=== PATIENT | female | born 1950 | race Caucasian/White ===

== ENCOUNTER 2017-11-17 09:05 | Outpatient (CLI) | payer MEDICARE, OTHER, SELFPAY ==
--- NOTE | 2017-11-17 09:17 | DI.REPORT_ITS ---
SYMPTOM/DIAGNOSIS: RT THUMB PAIN RIGHT WRIST: Three views. At the first carpal metacarpal joint, there is marked joint space narrowing and subchondral sclerosis present. Prominent hypertrophic changes are seen at the joint space. The joint spaces of the wrist are otherwise well maintained. The bones are intact and normally mineralized. The soft tissues are unremarkable. 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
== END 2017-11-17 09:06 ==
PROVIDERS: Visit Provider Physician Assistant
DX: M79.644 Pain in right finger(s) (principal); M18.11 Unilateral primary osteoarthritis of first carpometacarpal joint, right hand
CPT/HCPCS: 73110; 99203

== ENCOUNTER → 2017-12-29 09:11 | Outpatient (BNVA) | payer MEDICARE, OTHER, SELFPAY | PROVIDERS: Visit Provider Student in an Organized Health Care Education/Training Program | DX: M18.11 Unilateral primary osteoarthritis of first carpometacarpal joint, right hand (principal) | CPT/HCPCS: 20600; 99213; J1030 ==

== ENCOUNTER 2018-02-05 07:57 | Outpatient (CLI) | payer MEDICARE, OTHER, SELFPAY ==
[2018-02-05 09:26] LABS: Cholesterol 230 mg/dL (50-200); Glucose 98 mg/dL (70-100); HDL Cholesterol 70 mg/dL (40-60); LDL CHOLESTEROL 135 mg/dL (<100); TSH 0.17 uIU/mL (0.358-3.74); Triglyceride 123 mg/dL (30-150)
[2018-02-05 09:38] LABS: Vitamin D 25 Total 33.5 ng/ml (30-100)
== END 2018-02-05 08:17 ==
PROVIDERS: PCP General Practice; Visit Provider General Practice
DX: E03.9 Hypothyroidism, unspecified (principal); E78.89 Other lipoprotein metabolism disorders; M81.0 Age-related osteoporosis without current pathological fracture
CPT/HCPCS: 36415; 80061; 82306; 82947; 83721; 84443

== ENCOUNTER 2019-03-02 10:12 | Outpatient (REF) | payer MEDICARE, SELFPAY ==
[2019-03-02 12:44] LABS: ALT 31 U/L (14-59); AST 19 U/L (15-37); Albumin 4.6 g/dL (3.4-5.0); Alkaline Phosphatase 74 U/L (46-116); Anion Gap 14.4 mmol/L (3-11); BUN 18 mg/dL (7-18); Bilirubin, Total 0.3 mg/dL (0.2-1.0); CO2 23.6 mmol/L (21.0-32.0); CREATININE 0.89 mg/dL (0.55-1.02); Calcium 9.5 mg/dL (8.5-10.1); Calculated LDL 175 mg/dL; Chloride 103 mmol/L (98-107); Cholesterol 275 mg/dL (<200); Glucose 109 mg/dL (74-106); HDL Cholesterol 73 mg/dL (40-60); Magnesium 2.1 mg/dL (1.8-2.4); Potassium 4.4 mmol/L (3.5-5.1); Sodium 141 mmol/L (136-145); TSH (W/Ref FT4) 0.33 uIU/mL (0.36-3.74); Total Protein 8.5 g/dL (6.4-8.2); Triglyceride 138 mg/dL (30-150)
[2019-03-02 13:16] LABS: FREE T4 1.37 ng/dL (0.76-1.46); PHOSPHORUS 4.1 mg/dL (2.6-4.7)
== END 2019-03-02 10:32 ==
LOC: NCHCN 10:12
PROVIDERS: PCP General Practice; Visit Provider Nurse Practitioner Family
DX: I10 Essential (primary) hypertension (principal); E78.5 Hyperlipidemia, unspecified; E05.90 Thyrotoxicosis, unspecified without thyrotoxic crisis or storm; N39.3 Stress incontinence (female) (male); G47.00 Insomnia, unspecified; J30.2 Other seasonal allergic rhinitis; Z85.3 Personal history of malignant neoplasm of breast; M81.0 Age-related osteoporosis without current pathological fracture
CPT/HCPCS: 80053; 80061; 83735; 84100; 84439; 84443

== ENCOUNTER 2019-03-17 10:06 | Outpatient (REF) | payer MEDICARE, SELFPAY ==
[2019-03-17 12:41] LABS: Anion Gap 10.7 mmol/L (3-11); BUN 16 mg/dL (7-18); CO2 27.3 mmol/L (21.0-32.0); CREATININE 0.77 mg/dL (0.55-1.02); Calcium 8.8 mg/dL (8.5-10.1); Chloride 93 mmol/L (98-107); Glucose 99 mg/dL (74-106); Potassium 3.5 mmol/L (3.5-5.1); Sodium 131 mmol/L (136-145)
== END 2019-03-17 10:26 ==
LOC: NCHCN 10:06
PROVIDERS: PCP General Practice; Visit Provider Nurse Practitioner Family
DX: I10 Essential (primary) hypertension (principal); E78.5 Hyperlipidemia, unspecified
CPT/HCPCS: 80048

== ENCOUNTER 2019-04-02 10:34 | Outpatient (REF) | payer MEDICARE, SELFPAY ==
[2019-04-02 20:56] LABS: Anion Gap 11.8 mmol/L (3-11); BUN 17 mg/dL (7-18); CO2 24.2 mmol/L (21.0-32.0); CREATININE 0.92 mg/dL (0.55-1.02); Chloride 104 mmol/L (98-107); Glucose 103 mg/dL (74-106); Potassium 4.6 mmol/L (3.5-5.1); Sodium 140 mmol/L (136-145)
== END 2019-04-02 10:54 ==
LOC: NCHCN 10:34
PROVIDERS: PCP General Practice; Visit Provider Nurse Practitioner Family
DX: I10 Essential (primary) hypertension (principal)
CPT/HCPCS: 80048

== ENCOUNTER 2019-04-15 10:08 | Outpatient (REF) | payer MEDICARE, SELFPAY | END 2019-04-15 10:28 | LOC: NCHCN 10:08 | PROVIDERS: PCP General Practice; Visit Provider Nurse Practitioner Family | DX: I10 Essential (primary) hypertension (principal); E78.5 Hyperlipidemia, unspecified; E05.90 Thyrotoxicosis, unspecified without thyrotoxic crisis or storm | CPT/HCPCS: 84443 ==

== ENCOUNTER 2020-03-14 11:49 | Outpatient (REF) | payer MEDICARE, SELFPAY ==
[2020-03-14 22:31] LABS: Calculated LDL 159 mg/dL (<100); Cholesterol 260 mg/dL (<200); HDL Cholesterol 72 mg/dL (40-60); TSH 2.47 uIU/mL (0.36-3.74); Triglyceride 148 mg/dL (<150)
[2020-03-16 15:41] LABS: ALT 31 U/L (14-59); AST 24 U/L (15-37); Albumin 4.3 g/dL (3.4-5.0); Alkaline Phosphatase 63 U/L (46-116); Anion Gap 10.1 mmol/L (3-11); BUN 17 mg/dL (7-18); Bilirubin, Total 0.3 mg/dL (0.2-1.0); CO2 22.9 mmol/L (21.0-32.0); CREATININE 1.13 mg/dL (0.55-1.02); Calcium 9.5 mg/dL (8.5-10.1); Chloride 105 mmol/L (98-107); Glucose 113 mg/dL (74-106); Potassium 4.8 mmol/L (3.5-5.1); Sodium 138 mmol/L (136-145); Total Protein 7.9 g/dL (6.4-8.2)
== END 2020-03-14 12:09 ==
LOC: NCHCN 11:49
PROVIDERS: PCP General Practice; Visit Provider Nurse Practitioner Family
DX: I10 Essential (primary) hypertension (principal); E05.90 Thyrotoxicosis, unspecified without thyrotoxic crisis or storm; E78.5 Hyperlipidemia, unspecified
CPT/HCPCS: 80053; 80061; 84443

== ENCOUNTER 2020-09-22 16:22 | Outpatient (REF) | payer MEDICARE, SELFPAY ==
[2020-09-22 20:22] LABS: ALT 34 U/L (14-59); AST 22 U/L (15-37); Albumin 4.4 g/dL (3.4-5.0); Alkaline Phosphatase 70 U/L (46-116); BUN 24 mg/dL (7-18); Bilirubin, Total 0.4 mg/dL (0.2-1.0); CREATININE 1.6 mg/dL (0.55-1.02); Calcium 9.4 mg/dL (8.5-10.1); Calculated LDL 125 mg/dL (<100); Chloride 105 mmol/L (98-107); Cholesterol 275 mg/dL (<200); Estimated GFR 31.87 (mL/min/1.73m2); Glucose 106 mg/dL (74-106); HDL Cholesterol 73 mg/dL (40-60); Potassium 4.4 mmol/L (3.5-5.1); Sodium 140 mmol/L (136-145); Total Protein 8.3 g/dL (6.4-8.2); Triglyceride 388 mg/dL (<150)
[2020-09-25 09:54] LABS: Hepatitis C Ab w Rflx HCV PCR Negative (Negative)
== END 2020-09-22 16:23 | disposition home or self-care (01) ==
LOC: NCHCN 16:22
PROVIDERS: PCP General Practice; Visit Provider Nurse Practitioner Family
DX: I10 Essential (primary) hypertension (principal); E78.5 Hyperlipidemia, unspecified; M81.0 Age-related osteoporosis without current pathological fracture; Z11.59 Encounter for screening for other viral diseases; E05.90 Thyrotoxicosis, unspecified without thyrotoxic crisis or storm
CPT/HCPCS: 80053; 80061; 86803

== ENCOUNTER 2020-10-18 01:35 | Outpatient (CLI) | payer MEDICARE, SELFPAY ==
--- NOTE | 2020-10-18 | DI.DEXA_ITS ---
Exam(s) XR DEXA BONE DENSITY W/WO FADI EXAM: XR DEXA BONE DENSITY W/WO FADI CLINICAL HISTORY: OSTEOPOROSIS, M81.0 TECHNIQUE: COMPARISON: No exams were available for comparison FINDINGS: Lateral Spine Image: Unremarkable. No compression deformities identified. Left hip: Total T-Score: -2.1 Total Z-Score: -0.6 T- and Z-scores: Findings consistent with osteopenia. Lumbar Spine: Total T-Score: -2.0 Total Z-Score: 0.2 T- and Z-scores: Findings consistent with osteopenia. IMPRESSION: Osteopenia in the left hip and lumbar spine.
== END 2020-10-18 01:55 ==
PROVIDERS: PCP General Practice; Visit Provider Nurse Practitioner Family
DX: M85.89 Other specified disorders of bone density and structure, multiple sites (principal); M81.0 Age-related osteoporosis without current pathological fracture
CPT/HCPCS: 77080

== ENCOUNTER 2020-11-09 09:41 | Outpatient (REF) | payer MEDICARE, SELFPAY ==
[2020-11-09 15:17] LABS: ALT 37 U/L (14-59); AST 27 U/L (15-37); Albumin 4.3 g/dL (3.4-5.0); Alkaline Phosphatase 67 U/L (46-116); Anion Gap 11.4 mmol/L (3-11); BUN 20 mg/dL (7-18); Bilirubin, Total 0.3 mg/dL (0.2-1.0); CO2 24.6 mmol/L (21.0-32.0); CREATININE 1.1 mg/dL (0.55-1.02); Calcium 9.3 mg/dL (8.5-10.1); Calculated LDL 111 mg/dL (<100); Chloride 106 mmol/L (98-107); Cholesterol 223 mg/dL (<200); Estimated GFR 48.96 (mL/min/1.73m2); Glucose 97 mg/dL (74-106); HDL Cholesterol 85 mg/dL (40-60); Sodium 142 mmol/L (136-145); Triglyceride 137 mg/dL (<150)
== END 2020-11-09 09:42 | disposition home or self-care (01) ==
LOC: NCHCN 09:41
PROVIDERS: PCP General Practice; Visit Provider Nurse Practitioner Family
DX: I10 Essential (primary) hypertension (principal); E78.5 Hyperlipidemia, unspecified
CPT/HCPCS: 80053; 80061

== ENCOUNTER 2020-12-03 10:09 | Emergency (ER) | payer MEDICARE, SELFPAY ==
[2020-12-03 10:17] VITALS: BP 137/69; PULSE 105; RESP 16; TEMP 36.7; O2SAT 98
--- NOTE | 2020-12-03 10:32 | W.ED.GENAD ---
Discharge Plan Disposition Patient Disposition: HOME Condition: Stable Discharge Details Clinical Impression: Cellulitis Primary Care Provider: Leandro Waters ED Provider: Apolonia Westbrook Home Meds and New Rx's Prescriptions: New clindamycin HCl 150 mg capsule 450 mg PO TID 5 Days Qty: 45 RF: 0 Continued levothyroxine 150 MCG tablet 137 mcg PO DAILY RF: 0 zolpidem [Ambien] 5 MG tablet 10 mg PO PRN RF: 0 letrozole 2.5 MG tablet 2.5 mg PO DAILY RF: 0 pravastatin 10 mg Tablet 10 mg PO DAILY RF: 0 amlodipine 10 mg Tablet 10 mg PO DAILY RF: 0 lisinopril 10 mg Tablet 10 mg PO DAILY RF: 0 Discharge Instructions Instructions: Cellulitis (ED) Additional Instructions: Your exam is most concerning for skin infection. At this time, I do not believe that this extends into your elbow. Please encourage hydration. Encourage rest, ice, elevation. You may use Tylenol and/or ibuprofen as needed for discomfort. Please take the antibiotics as prescribed. Even if symptoms improve, please take the entire course. Please call please take a probiotic while on the antibiotic. Please follow-up with your primary care provider in the next 2 to 3 days for reevaluation. If you develop fever/chills, increased pain, spreading of the redness or other new/worsening symptoms please seek care urgently Referrals: Leandro Waters MD [Primary Care Provider] - Discharge Data Discharge Date/Time-TO BE ENTERED AT DEPARTURE: 12/03/20 10:52 Medical Decision Making Patient is a pleasant 70-year-old female, accompanied by her , with chief complaint of right elbow infection. She reports that 2 days ago she tripped over a cord and fell striking her elbow. Suffered a 5 mm puncture wound. She reports that she cleaned this and covered with bacitracin and dressing. Initially, had been feeling well. However, woke up this morning with swollen, erythematous and has purulent discharge is worse when she flexes the elbow. She denies any pain with movement of the elbow. Denies any fevers or chills. Patient is not immunocompromised. On exam, patient does have findings to suggest a purulent cellulitis. Appears to be draining well. I do not suspect intra-articular involvement. She has great range of motion and no pain with palpation of the bony prominences. Patient is allergic to penicillin. Has not tried a cephalosporin historically. I did review her labs pneumonia and he stated the patient has had some kidney dysfunction historically. Hesitant to use Bactrim. Will use clindamycin for better coverage. Advised to follow-up with primary care on Friday or Friday for reevaluation. Return precautions were discussed. Encourage use of probiotic while on the clindamycin. All other questions or concerns were addressed and she is in agreement this plan. HPI General Mode of arrival: ambulatory. Date/Time Provider Initiated Documentation: 12/03/20 10:25. Limitations to Documentation: no limitations. Information obtained by: patient, family () and RN notes reviewed. History of Present Illness 70 year old F presents to the emergency department with the chief complaint of right erythema, wound, described as mild, with intensity rated at 2. Quality is described as aching, and is localized to the right and upper extremity. Patient reports no radiation. Patient started experiencing this day(s) (2) and it has been constant. No relieving factors improve symptom(s), No exacerbating factors reported . Patient notes no other symptoms.; denies fever/chills. Patient did receive the following treatments prior to arrival, none Related Data Home Medications Medication Instructions Recorded Confirmed letrozole 2.5 mg PO DAILY tab-cap 11/17/17 12/03/20 levothyroxine 137 mcg PO DAILY tab-cap 11/17/17 12/03/20 zolpidem [Ambien] 10 mg PO PRN tab-cap 11/17/17 12/03/20 amlodipine 10 mg PO DAILY 12/03/20 12/03/20 clindamycin HCl 450 mg PO TID 5 Days #45 cap 12/03/20 lisinopril 10 mg PO DAILY 12/03/20 12/03/20 pravastatin 10 mg PO DAILY 12/03/20 12/03/20 Previous Rx's Medication Instructions Recorded clindamycin HCl 450 mg PO TID 5 Days #45 cap 12/03/20 Allergies Allergy/AdvReac Type Severity Reaction Status Date / Time aspirin Allergy Severe ANAPHYLAXIS Unverified 12/03/20 10:22 Penicillins AdvReac Mild RASH Unverified 12/03/20 10:22 General Stated Complaint: Laceration CONSUELO: 4 Review of Systems Constitutional Constitutional: Reports as per HPI, Denies chills and Denies fever(s) Musculoskeletal Musculoskeletal: Reports as per HPI Integumentary/Breasts Skin/Breast: Reports as per HPI Neurologic Neurologic: Reports as per HPI, Denies sensory deficit and Denies paresthesias [facility] Social History Smoking/Tobacco Use Status: Former Tobacco Use Smoking risk assessment performed?: Yes Substance use type: does not use Exam Const General: cooperative, healthy appearing, comfortable, no acute distress and well developed Nutritional Appearance: average body habitus and well nourished Orientation: alert and awake Resp Effort & Inspection: normal respiratory effort, able to speak in complete sentences and no respiratory distress Cardio Rate: regular rate Rhythm: regular rhythm Skin General skin exam: erythema Trauma: laceration Neuro General: patient alert and patient awake Cognition: normal cognition Speech: speech normal Gait: normal gait Sensory Exam: no sensory deficits noted Extrem Elbow/forearm/wrist images: 1. small laceration with thin purulent discharge with palpation 2. Surrounding erythema and warmth. No pain with palpation. Full ROM without pain. No pain with palpation over bony prominences. Psych Appearance: grossly normal and well kempt Mental Status: mental status grossly normal Speech and Movement: speech and movement normal Course Vital Signs Vital signs: Vital Signs Temperature 36.7 C 12/03/20 10:17 Pulse 105 H 12/03/20 10:17 Respiratory Rate 16 12/03/20 10:17 Blood Pressure 137/69 12/03/20 10:17 Pulse Oximetry 98 12/03/20 10:17 Temperature 36.7 C 12/03/20 10:17 Temperature Source Skin 12/03/20 10:17 Pulse 105 H 12/03/20 10:17 Respiratory Rate 16 12/03/20 10:17 Respiratory Effort Non-Labored 12/03/20 10:17 Blood Pressure 137/69 12/03/20 10:17 Blood Pressure Position Sitting 12/03/20 10:17 Pulse Oximetry 98 12/03/20 10:17 Oxygen Delivery Method Room Air 12/03/20 10:17 Oxygen Flow Rate 0 12/03/20 10:17 Pain Level 2 12/03/20 10:17
== END 2020-12-03 10:52 | disposition home or self-care (01) ==
LOC: ER 13:57
PROVIDERS: Emergency Provider Physician Assistant; PCP General Practice
DX: L03.113 Cellulitis of right upper limb (principal); S51.031A Puncture wound without foreign body of right elbow, initial encounter; W18.39XA Other fall on same level, initial encounter
CPT/HCPCS: 99283

== ENCOUNTER 2021-01-30 00:23 | Observation (INO) | payer MEDICARE, SELFPAY ==
[2021-01-30] VITALS (39 sets, daily range): BP systolic 70–145; BP diastolic 40–81; PULSE 66–102; RESP 12–18; TEMP 36.1–37.4; O2SAT 91–100
--- NOTE | 2021-01-30 00:33 | ED.GENADUL_ITS ---
Discharge Plan Disposition Patient Disposition: [facility] INPATIENT Condition: Stable Discharge Details Clinical Impression: Fracture of spinous process of cervical vertebra, Fracture of spinous process of thoracic vertebra, Cervical radiculopathy Primary Care Provider: Leandro Waters ED Provider: Vesta Nugent Home Meds and New Rx's Prescriptions: No Action levothyroxine 150 MCG tablet 137 mcg PO DAILY RF: 0 zolpidem [Ambien] 5 MG tablet 10 mg PO PRN RF: 0 letrozole 2.5 MG tablet 2.5 mg PO DAILY RF: 0 pravastatin 10 mg Tablet 10 mg PO DAILY RF: 0 amlodipine 10 mg Tablet 10 mg PO DAILY RF: 0 lisinopril 10 mg Tablet 10 mg PO DAILY RF: 0 Medical Decision Making 0030 -- 70-year-old female presents with left-sided neck, left shoulder pain with burning pain in hand and 2nd-4th fingers after mechanical fall down 13 stairs at home prior to arrival. No report of head injury, LOC or vomiting. She is alert and oriented x3 and able to answer questions appropriately. Her vitals are within normal limits. She has midline cervical and upper thoracic spinal tenderness as well as left paraspinal cervical and thoracic tenderness. She has pain with range of motion to her left shoulder, left wrist and second through fourth fingers. There is no obvious orthopedic deformity. She is neurovascularly intact. Lungs clear. Abdomen soft nontender. No focal deficits. Patient placed in c-collar and referred for imaging. She was given a dose of Valium p.o. and Toradol IM. 0100 -- Imaging reviewed and noted C6, C7 and T1 spinous process fractures. Remainder of injury imaging unremarkable. Images pushed to [facility] spine for review. We will keep patient in hard cervical collar. Patient informed of findings and reassess. She is complaining of pain 11/21. We will give a dose of morphine. 0215 --blood pressure soft, systolic of 90s. Suspect due to multiple sedating medications. We will give a small bolus of IV fluids. 0230 --imaging reviewed with [facility] spine --recommends Garber cervical collar and head of bed can be elevated. As patient has burning pain and tingling in her fingers, recommends MRI of cervical spine down to T2 in abundance of caution. If MRI of cervical spine negative, recommend standing x-rays of the cervical and thoracic spine to confirm stability. No recommendation for acute transfer at this time. Will admit patient here overnight with plan for MRI cervical spine tomorrow. Case discussed with radiology who was informed that x-rays of the cervical and thoracic spine are not to be done until the MRI of the cervical spine is confirmed to be negative. Recommends follow-up with [facility] spine tomorrow regarding MRI and x-rays. Case discussed with hospitalist who accepts patient for admission. Pt and agreeable with plan. Medical Records Medical records reviewed: Yes I reviewed the patient's medical records. Imaging Data Radiologic Study: Radiologist's impression: CT Head Without Contrast Exam date and time: 01/30/2021 12:57 AM Age: 70 years old Clinical indication: Injury or trauma; Blunt trauma (contusions or hematomas); Consciousness not specified; Injury date: 01/30/21; Injury details: Fall down stairs TECHNIQUE: Imaging protocol: Computed tomography of the head without contrast. Radiation optimization: All CT scans at this facility use at least one of these dose optimization techniques: automated exposure control; mA and/or kV adjustment per patient size (includes targeted exams where dose is matched to clinical indication); or iterative reconstruction. COMPARISON: No relevant prior studies available. FINDINGS: Brain: Age- related chronic microvascular changes are noted within the white matter. Cerebral ventricles: The ventricles and sulci are prominent compatible with age-appropriate atrophy. Paranasal sinuses: Visualized sinuses are unremarkable. No fluid levels. Mastoid air cells: Visualized mastoid air cells are well aerated. Bones/joints: Unremarkable. No acute fracture. Soft tissues: Unremarkable. IMPRESSION: Age-appropriate atrophy and chronic microvascular change. CT Cervical Spine Without Contrast Exam date and time: 01/30/2021 12:57 AM Age: 70 years old Clinical indication: Injury or trauma; Blunt trauma (contusions or hematomas); Consciousness not specified; Injury date: 01/30/21; Injury details: Fall down stairs TECHNIQUE: Imaging protocol: Computed tomography images of the cervical spine without contrast. Radiation optimization: All CT scans at this facility use at least one of these dose optimization techniques: automated exposure control; mA and/or kV adjustment per patient size (includes targeted exams where dose is matched to clinical indication); or iterative reconstruction. COMPARISON: No relevant prior studies available. FINDINGS: Vertebrae: Cervical degenerative disc disease and facet joint arthropathy noted. No evidence for fracture, dislocation or subluxation. C6, C7 and T1 spinous process fractures. C2--T1: No significant disc protrusion. No severe spinal canal stenosis. No significant neural foraminal narrowing. Soft tissues: Unremarkable. Lungs: Lung apices are normal. IMPRESSION: C6, C7 and T1 spinous process fractures. CT Thoracic Spine Without Contrast Exam date and time: 01/30/2021 1:22 AM Age: 70 years old Clinical indication: Injury or trauma; Blunt trauma (contusions or hematomas); Injury date: 01/30/21; Injury details: Upper t spine pain; Patient HX: Fall down stairs TECHNIQUE: Imaging protocol: Computed tomography images of the thoracic spine without contrast. Radiation optimization: All CT scans at this facility use at least one of these dose optimization techniques: automated exposure control; mA and/or kV adjustment per patient size (includes targeted exams where dose is matched to clinical indication); or iterative reconstruction. COMPARISON: CT HEAD CERVICAL SPINE WO 01/30/2021 1:07 AM FINDINGS: Vertebrae: Spinous process fractures noted at the cervicothoracic junction involving C6 through T1. T1-L1: No significant disc protrusion. No severe spinal canal stenosis. No significant neural foraminal narrowing. IMPRESSION: Spinous process fractures noted at the cervicothoracic junction involving C6 through T1. XR Left Wrist Exam date and time: 01/30/2021 12:57 AM Age: 70 years old Clinical indication: Injury or trauma; Blunt trauma (contusions or hematomas); Wrist; Left; Injury date: 01/30/21; Injury details: Fall down stairs TECHNIQUE: Imaging protocol: XR Left wrist. Views: 3 or more views. COMPARISON: CR XR HAND LT COMPLETE 01/30/2021 1:34 AM FINDINGS: Bones/joints: Normal. Soft tissues: Normal. IMPRESSION: No acute findings. XR Left Hand Exam date and time: 01/30/2021 12:57 AM Age: 70 years old Clinical indication: Injury or trauma; Blunt trauma (contusions or hematomas); Hand; Left; Injury date: 01/30/21; Injury details: Fall down stairs TECHNIQUE: Imaging protocol: XR Left hand. Views: 3 or more views. COMPARISON: No relevant prior studies available. FINDINGS: Bones/joints: Normal. Soft tissues: Normal. IMPRESSION: No acute findings. XR Left Shoulder Exam date and time: 01/30/2021 12:57 AM Age: 70 years old Clinical indication: Injury or trauma; Blunt trauma (contusions or hematomas); Shoulder; Left; Injury date: 01/30/21; Injury details: Fall down stairs TECHNIQUE: Imaging protocol: XR Left shoulder. Views: 2 or more views. COMPARISON: No relevant prior studies available. FINDINGS: Bones/joints: Normal. Soft tissues: Normal. IMPRESSION: No acute findings. HPI General Mode of arrival: EMS . Date/Time Provider Initiated Documentation: 01/30/21 00:24 . Limitations to Documentation: no limitations . Information obtained by: patient . HPI Narrative: Patient is a 70-year-old female who presents with left sided neck, left shoulder and left wrist and hand pain after mechanical fall down 13 steps at home prior to arrival. Patient states she drank 2 whiskeys this evening and then took an Ambiem before bed. She states it was cold upstairs so she went down to the basement and she states she tripped over her feet and fell down the 13 carpeted basement stairs onto the hard floor at the bottom. She states she is having pain in the left side of her neck, left shoulder and burning pain in the dorsum of her left hand and 2nd-4th fingers. She took Advil 3 hours prior to arrival with some relief. She denies known head injury, LOC, nausea, vomiting, chest pain, shortness of breath, palpitation, dizziness, abdominal pain, back pain. Related Data Home Medications Medication Instructions Recorded Confirmed letrozole 2.5 mg PO DAILY tab-cap 11/17/17 01/30/21 levothyroxine 137 mcg PO DAILY tab-cap 11/17/17 01/30/21 zolpidem [Ambien] 10 mg PO PRN tab-cap 11/17/17 01/30/21 amlodipine 10 mg PO DAILY 12/03/20 01/30/21 lisinopril 10 mg PO DAILY 12/03/20 01/30/21 pravastatin 10 mg PO DAILY 12/03/20 01/30/21 Allergies Allergy/AdvReac Type Severity Reaction Status Date / Time aspirin Allergy Severe ANAPHYLAXIS Unverified 01/30/21 00:42 Penicillins AdvReac Mild RASH Unverified 01/30/21 00:42 General CONSUELO: 4 Review of Systems All systems reviewed & are unremarkable except as noted in HPI and below Constitutional Constitutional: Reports as per HPI, Denies chills and Denies fever(s) Eyes Eyes: Denies blurry vision ENT Ears, Nose, Mouth, and Throat: Denies dizziness, Reports neck pain, Denies sore throat and Denies throat swelling Cardiovascular Cardiovascular: Denies chest pain and Denies dyspnea Respiratory Respiratory: Denies cough and Denies dyspnea Gastrointestinal Gastrointestinal: Denies abdominal pain, Denies diarrhea and Denies vomiting Genitourinary Genitourinary: Denies hematuria and Denies dysuria Musculoskeletal Musculoskeletal: Reports back pain, Reports neck pain and Denies numbness Integumentary/Breasts Skin/Breast: Denies lesions and Denies rash Neurologic Neurologic: Denies dizziness, Denies localized weakness and Denies numbness Allergic/Immunologic Allergic/Immunologic: Denies throat swelling [facility] Social History Smoking/Tobacco Use Status: Former Tobacco Use Smoking risk assessment performed?: Yes Alcohol Intake: current Alcohol Intake frequency: a few times a week Drug use: Never Substance use type: does not use Do you feel safe at home: Yes Do you feel safe in your relationship?: Yes Exam Const General: cooperative, healthy appearing and no acute distress HENMT Head: normal to inspection Ears: hearing grossly normal bilaterally, external ears normal and TM's normal bilaterally Face and sinus: normal facial exam Mouth: oral mucosae normal Teeth and gingiva: dentition normal Throat: posterior oropharynx normal Eyes General: appearance normal, both eyes and all related structures Pupils: PERRL EOM: EOM intact bilaterally Neck Neck: normal visual inspection and No submandibular swelling Lymphatic: no lymphadenopathy noted Chest Chest: normal inspection of the chest and no tenderness Resp Effort & Inspection: normal respiratory effort and able to speak in complete sentences Auscultation: clear to auscultation bilaterally Cardio Rate: regular rate Rhythm: regular rhythm GI Inspection: normal to inspection Palpation: soft, not firm, not rigid and nontender Auscultation: normal bowel sounds Back/Spine/Pelvis Cervical Spine: cervical muscular tenderness (L cervical paraspinal) and cervical spinal tenderness Thoracic/Lumbar Spine: thoracic and lumbar spine normal to inspection, paraspinal tenderness (L upper thoracic), thoracic spinal tenderness (upper) and No lumbar spinal tenderness Pelvis: no pain with anterior-posterior compression Skin General skin exam: no rashes or lesions noted Neuro General: patient alert, patient awake and patient oriented x3 Cognition: normal cognition Speech: speech normal Motor: muscle tone normal throughout and strength 5/5 throughout Sensory Exam: no sensory deficits noted Other: Neurosensory grossly intact to biceps/triceps/radial/ulnar/median nerve function. Extrem General: normal to inspection, full ROM, capillary refill normal, no calf tenderness bilaterally and no edema Other: Pain with range of motion and tenderness to palpation to left anterior/lateral shoulder. No tenderness to palpation to left clavicle. No tenderness palpation to left distal upper arm, forearm or elbow. Tenderness to palpation to left dorsal wrist and left second through fourth fingers. There is no evident evidence of trauma or deformity to wrist or hand. No left snuffbox tenderness. No pain with range of motion or tenderness to palpation to right upper extremity or bilateral lower extremities. Bilateral distal upper extremity pulses intact. Psych Appearance: grossly normal Mental Status: mental status grossly normal Speech and Movement: speech and movement normal Affect: normal affect
--- NOTE | 2021-01-30 00:45 | DI.CT_ITS ---
Exam(s) CT HEAD CERVICAL SPINE WO EXAM: CT HEAD CERVICAL SPINE WO CLINICAL HISTORY: s/p fall, r/o acute fracture. TECHNIQUE: Imaging Protocol: Axial computed tomography images with coronal and sagittal reformatted images were created and reviewed COMPARISON: No exams were available for comparison FINDINGS: CT Head: Ventricles and Extra axial spaces: Normal in size and morphology for the patient's age. Hemorrhage: None. Cerebral parenchyma: No acute territorial infarct. Subtle areas of decreased attenuation are seen in the white matter most consistent with chronic microvascular ischemic change. Midline shift: None. Brainstem/Cerebellum: Normal. Calvarium: Normal. Visualized Paranasal sinuses/Mastoids: Clear. Soft Tissues: Unremarkable. CT Cervical Spine: Bones: There are acute fractures involving the spinous processes of C6, C7 and T1. The fractures are displaced posteriorly and slightly inferiorly up to 0.9 cm. No other fractures are seen. Moderate degenerative changes are seen in the cervical spine. Soft Tissues: Unremarkable. Lung Apices: Clear. IMPRESSION: 1. No acute intracranial process. 2. Displaced acute fractures involving the spinous processes of C6, C7 and T1. RADIATION DOSE DELIVERED: 982.92mGy.cm Total DLP DATA REPOSITORY: All CT scans at this facility are submitted to the National Radiology Data Registry (NRDR) Dose Index Registry (DIR) with the [employer] ([employer]). RADIATION OPTIMIZATION: All CT scans at this facility use at least one of these dose optimization te chniques: automated exposure control; mA and/or kV adjustment per patient size (includes targeted exa ms where dose is matched to clinical indication); or iterative reconstruction.
--- NOTE | 2021-01-30 00:45 | DI.RAD_ITS ---
Exam(s) XR SHOULDER LT COMPLETE 2+V EXAM: XR SHOULDER LT COMPLETE 2+V CLINICAL HISTORY: s/p fall, r/o fracture. TECHNIQUE: 2D digital imaging was performed of the left shoulder. Four images were obtained. AP in ternal and external, Grashey and Y view views were obtained. COMPARISON: No exams were available for comparison FINDINGS: BONES: No acute fracture is present. No bony destructive lesion is seen. JOINTS: No dislocation present. Mild degenerative changes are seen at the acromioclavicular joint. SOFT TISSUE: Normal. IMPRESSION: No acute fracture or dislocation. DATA REPOSITORY: RADIATION DOSE DELIVERED:
--- NOTE | 2021-01-30 00:45 | DI.RAD_ITS ---
Exam(s) XR WRIST LT COMPLETE EXAM: XR WRIST LT COMPLETE CLINICAL HISTORY: s/p fall, r/o acute fx. TECHNIQUE: 2D digital imaging was performed of the left wrist. Three images were obtained. Scaphoi d, PA, oblique and lateral views were obtained. COMPARISON: No exams were available for comparison FINDINGS: BONES: No acute fracture is present. No bony destructive lesion is seen. JOINTS: The carpal bones are normally aligned. Moderate degenerative changes are seen at the 1st CMC joint. SOFT TISSUE: Normal. IMPRESSION: No acute fracture or dislocation. DATA REPOSITORY: RADIATION DOSE DELIVERED:
--- NOTE | 2021-01-30 00:45 | DI.CT_ITS ---
Exam(s) CT THORACIC SPINE WO EXAM: CT THORACIC SPINE WO CLINICAL HISTORY: s/p fall, r/o acute fracture. TECHNIQUE: Imaging Protocol: Axial computed tomography images with coronal and sagittal reformatted images were created and reviewed. COMPARISON: No exams were available for comparison FINDINGS: Bones: There are acute fractures involving the spinous processes of C6, C7 and T1. There is displace ment of the fracture is posteriorly and inferiorly up to 9 mm. The spinal canal is well maintained. The alignment of the spine is normal including the cervicothoracic junction. Degenerative changes ar e seen in the thoracic spine. Soft tissues: The soft tissues of the chest are unremarkable. No large disk herniations are identifie d. IMPRESSION: Acute displaced fractures involving the spinous processes of C6, C7 and T1. RADIATION DOSE DELIVERED: 604.75mGy.cm Total DLP 604.75mGy.cm Total DLP DATA REPOSITORY: All CT scans at this facility are submitted to the National Radiology Data Registry (NRDR) Dose Index Registry (DIR) with the [employer] (A[employer]). RADIATION OPTIMIZATION: All CT scans at this facility use at least one of these dose optimization te chniques: automated exposure control; mA and/or kV adjustment per patient size (includes targeted exa ms where dose is matched to clinical indication); or iterative reconstruction.
--- NOTE | 2021-01-30 00:45 | DI.RAD_ITS ---
Exam(s) XR HAND LT COMPLETE EXAM: XR HAND LT COMPLETE CLINICAL HISTORY: s/p fall, r/o acute fracture. TECHNIQUE: 2D digital imaging was performed of the left hand. Three views were obtained. AP, later al and oblique views were obtained. COMPARISON: No exams were available for comparison FINDINGS: BONES: No acute fracture is present. No bony destructive lesion is seen. JOINTS: No dislocation present. Moderate degenerative changes are seen at the 1st CMC joint. SOFT TISSUE: Normal. IMPRESSION: No acute fracture or dislocation. DATA REPOSITORY: RADIATION DOSE DELIVERED:
[2021-01-30] MEDS: diazePAM 2 MG TAB PO (01:04)
[2021-01-30] MEDS: Ketorolac 30 MG/ML VIAL IVP (01:04)
--- NOTE | 2021-01-30 01:35 | DI.VRAD_ITS ---
Addendum created by Sanjiv Barrios MD on 01/30/2021 2:08:38 AM EDT: Spinous process fractures are present from C6 through T1 Initial report created on 01/30/2021 1:34:53 AM EDT: PROCEDURE INFORMATION: Exam: CT Head Without Contrast Exam date and time: 01/30/2021 12:57 AM Age: 70 years old Clinical indication: Injury or trauma; Blunt trauma (contusions or hematomas); Consciousness not specified; Injury date: 01/30/21; Injury details: Fall down stairs TECHNIQUE: Imaging protocol: Computed tomography of the head without contrast. Radiation optimization: All CT scans at this facility use at least one of these dose optimization techniques: automated exposure control; mA and/or kV adjustment per patient size (includes targeted exams where dose is matched to clinical indication); or iterative reconstruction. COMPARISON: No relevant prior studies available. FINDINGS: Brain: Age- related chronic microvascular changes are noted within the white matter. Cerebral ventricles: The ventricles and sulci are prominent compatible with age-appropriate atrophy. Paranasal sinuses: Visualized sinuses are unremarkable. No fluid levels. Mastoid air cells: Visualized mastoid air cells are well aerated. Bones/joints: Unremarkable. No acute fracture. Soft tissues: Unremarkable. IMPRESSION: Age-appropriate atrophy and chronic microvascular change. PROCEDURE INFORMATION: Exam: CT Cervical Spine Without Contrast Exam date and time: 01/30/2021 12:57 AM Age: 70 years old Clinical indication: Injury or trauma; Blunt trauma (contusions or hematomas); Consciousness not specified; Injury date: 01/30/21; Injury details: Fall down stairs TECHNIQUE: Imaging protocol: Computed tomography images of the cervical spine without contrast. Radiation optimization: All CT scans at this facility use at least one of these dose optimization techniques: automated exposure control; mA and/or kV adjustment per patient size (includes targeted exams where dose is matched to clinical indication); or iterative reconstruction. COMPARISON: No relevant prior studies available. FINDINGS: Vertebrae: Cervical degenerative disc disease and facet joint arthropathy noted. No evidence for fracture, dislocation or subluxation. C7 and T1 spinous process fractures. C2--T1: No significant disc protrusion. No severe spinal canal stenosis. No significant neural foraminal narrowing. Soft tissues: Unremarkable. Lungs: Lung apices are normal. IMPRESSION: C7 and T1 spinous process fractures. Dictated and Authenticated by: Sanjiv Barrios MD. Ordering:MIKALA Lemons MD
--- NOTE | 2021-01-30 01:52 | DI.VRAD_ITS ---
PROCEDURE INFORMATION: Exam: CT Thoracic Spine Without Contrast Exam date and time: 01/30/2021 1:22 AM Age: 70 years old Clinical indication: Injury or trauma; Blunt trauma (contusions or hematomas); Injury date: 01/30/21; Injury details: Upper t spine pain; Patient HX: Fall down stairs TECHNIQUE: Imaging protocol: Computed tomography images of the thoracic spine without contrast. Radiation optimization: All CT scans at this facility use at least one of these dose optimization techniques: automated exposure control; mA and/or kV adjustment per patient size (includes targeted exams where dose is matched to clinical indication); or iterative reconstruction. COMPARISON: CT HEAD CERVICAL SPINE WO 01/30/2021 1:07 AM FINDINGS: Vertebrae: Spinous process fractures noted at the cervicothoracic junction involving C6 through T1. T1-L1: No significant disc protrusion. No severe spinal canal stenosis. No significant neural foraminal narrowing. IMPRESSION: Spinous process fractures noted at the cervicothoracic junction involving C6 through T1. Dictated and Authenticated by: Sanjiv Barrios MD. Ordering:MIKALA Lemons MD
--- NOTE | 2021-01-30 01:55 | DI.VRAD_ITS ---
PROCEDURE INFORMATION: Exam: XR Left Hand Exam date and time: 01/30/2021 12:57 AM Age: 70 years old Clinical indication: Injury or trauma; Blunt trauma (contusions or hematomas); Hand; Left; Injury date: 01/30/21; Injury details: Fall down stairs TECHNIQUE: Imaging protocol: XR Left hand. Views: 3 or more views. COMPARISON: No relevant prior studies available. FINDINGS: Bones/joints: Normal. Soft tissues: Normal. IMPRESSION: No acute findings. Dictated and Authenticated by: Sanjiv Barrios MD. Ordering:MIKALA Lemons MD
--- NOTE | 2021-01-30 01:55 | DI.VRAD_ITS ---
PROCEDURE INFORMATION: Exam: XR Left Wrist Exam date and time: 01/30/2021 12:57 AM Age: 70 years old Clinical indication: Injury or trauma; Blunt trauma (contusions or hematomas); Wrist; Left; Injury date: 01/30/21; Injury details: Fall down stairs TECHNIQUE: Imaging protocol: XR Left wrist. Views: 3 or more views. COMPARISON: CR XR HAND LT COMPLETE 01/30/2021 1:34 AM FINDINGS: Bones/joints: Normal. Soft tissues: Normal. IMPRESSION: No acute findings. Dictated and Authenticated by: Sanjiv Barrios MD. Ordering:MIKALA Lemons MD
--- NOTE | 2021-01-30 01:56 | DI.VRAD_ITS ---
PROCEDURE INFORMATION: Exam: XR Left Shoulder Exam date and time: 01/30/2021 12:57 AM Age: 70 years old Clinical indication: Injury or trauma; Blunt trauma (contusions or hematomas); Shoulder; Left; Injury date: 01/30/21; Injury details: Fall down stairs TECHNIQUE: Imaging protocol: XR Left shoulder. Views: 2 or more views. COMPARISON: No relevant prior studies available. FINDINGS: Bones/joints: Normal. Soft tissues: Normal. IMPRESSION: No acute findings. Dictated and Authenticated by: Sanjiv Barrios MD. Ordering:MIKALA Lemons MD
[2021-01-30] MEDS: Ondansetron 4 MG/2 ML VIAL IVP (02:05)
[2021-01-30] MEDS: Normal Saline 250 ML IV ×2 (02:25→04:45)
--- NOTE | 2021-01-30 02:30 | DI.MRI_ITS ---
Exam(s) MR CERVICAL SPINE WO EXAM: MR CERVICAL SPINE WO CLINICAL HISTORY: C6-7, T1 spinous process fx,r/o spinal cord injury TECHNIQUE: Multiplanar multisequence MRI of the cervical spine was performed without intravenous con trast. COMPARISON: No exams were available for comparison FINDINGS: BONES: Vertebral body heights are maintained. Endplate degenerative signal changes are seen from C4-C 5 through C6-C7. There is very mild reversal of the normal cervical lordosis centered at C4-C5. There are inferiorly displaced acute fractures involving the C6-C7 and T1 spinous processes. CERVICAL CORD: Craniovertebral junction is unremarkable. There does appear to be a faint focus of hyp erintense signal in the central spinal cord posterior to the C5 vertebral body. (Series 5001, image 9). SOFT TISSUES: There is moderate edema in the soft tissues along the entire cervical spine posteriorly . C2-3: No disc herniation or bulge is identified. No significant central spinal canal or neural forami nal stenosis. C3-4: No disc herniation or bulge is identified. No significant central spinal canal or neural forami nal stenosis C4-5: Prominence of the osteophyte disc complex causing narrowing of the central spinal canal. The A P diameter is 8 mm. Mild left uncovertebral joint hypertrophy. No significant neural foraminal sten osis. C5-6: Prominence of the osteophyte disc complex causing central spinal canal stenosis within AP diame ter 7 mm. Uncovertebral joint hypertrophy, right greater than left. Moderate right neural foraminal stenosis. No significant left neural foraminal stenosis. C6-7: There is mild prominence of the osteophyte disc complex. No significant central spinal canal s tenosis. Prominence of the uncovertebral joints is seen bilaterally. There is mild left neural fora linda narrowing. No significant right neural foraminal stenosis. C7-T1: No disc herniation or bulge is identified. No significant central spinal canal or neural ceferino inal stenosis IMPRESSION: 1. Acute fractures involving the C6, C7 and T1 spinous processes. Associated edema in the surroundin g soft tissues of the posterior neck. 2. Subtle small focus of hyperintense signal in the central spinal canal posterior to the C5 vertebra l body. This may represent acute spinal cord injury. 3. Multilevel degenerative changes in the cervical spine resulting in central spinal canal and neural foraminal stenosis as described above. DATA REPOSITORY:
[2021-01-30 02:58] LABS: Source Nasal/Nares
--- NOTE | 2021-01-30 03:11 | W.PM.HP.N ---
Date of service: 01/30/21 Time of Service: 03:11 Assessment and Plan Assessment and plan (1) Fracture of spinous process of cervical vertebra: Status: Acute Assessment and plan: Multiple fxx spinous processes C6-T1. Patient showing no signs or symptoms of myelopathy. The findings in the hand would be most consistent with a peripheral, though not radicular, lesion (viz, median nerve), though even then the findings are inconsistent across modalities. Per advice of NS will obtain MRI in AM, leave in collar in the interim. History of Present Illness History of Present Illness Chief Complaint: hand pain after a fall Narrative: 70 female. After taking Ambien went to turn heat on and fell down basement stairs. C/o a little neck and left shoulder pain, but mainly that her left hand is burning. No LE symptoms. In ER findings of note for fractures of the spinous processes of C6-T1. Case reviewed with [facility] neuro[place], advised MRI and, if negative, standing C-spines. CT head and plain films of shoulder and hand were negative. Patient has received Toradol, MS, Zofran and Valium. I was asked to evaluate for admission. Review of Systems All systems reviewed & are unremarkable except as noted in HPI and below PFSH Social History Smoking/Tobacco Use Status: Former Tobacco Use Smoking risk assessment performed?: Yes Alcohol Intake: current Alcohol Intake frequency: a few times a week Drug use: Never Substance use type: does not use Do you feel safe at home: Yes Do you feel safe in your relationship?: Yes Meds Allergies and Home Medications Allergies Allergy/AdvReac Type Severity Reaction Status Date / Time aspirin Allergy Severe ANAPHYLAXIS Unverified 01/30/21 00:42 Penicillins AdvReac Mild RASH Unverified 01/30/21 00:42 Home Medications Medication Instructions Recorded Confirmed Type letrozole 2.5 mg PO DAILY tab-cap 11/17/17 01/30/21 History levothyroxine 137 mcg PO DAILY tab-cap 11/17/17 01/30/21 History zolpidem [Ambien] 10 mg PO PRN tab-cap 11/17/17 01/30/21 History amlodipine 10 mg PO DAILY 12/03/20 01/30/21 History lisinopril 10 mg PO DAILY 12/03/20 01/30/21 History pravastatin 10 mg PO DAILY 12/03/20 01/30/21 History Exam Narrative Exam Narrative: 102/57, 87, 36.3, 14, 96% RA. HEENT Patient in [place] collar, no signs trauma anteriorly, posterior exam of head and neck deferred. Lungs clear; heart RRR; abdomen soft and NT; extremities w/o pedal edema. LUE shows no bruising or swelling. Neuro: Ox3, lucid, Motor 5/5 LUE prox/distal, 5/5 RUE and LEs, sensory decreased light touch digits 1,2,3 and splitting of 4 on LUE, intact pinprick throughout; DTR trace UE/LE and symmetric; toes downgoing Results Labs Labs: Laboratory Results - last 24 hr 01/30/21 02:50 COVID-19 Source Nasal/Nares Last Vital Signs Temp 36.3 C L 01/30/21 00:31 Pulse 87 01/30/21 02:52 Resp 14 01/30/21 02:52 BP 102/57 L 01/30/21 02:52 Pulse Ox 96 01/30/21 02:52
[2021-01-30] MEDS: Acetaminophen 325 MG TAB 650 MG PO ×4 (05:36→21:19)
[2021-01-30] MEDS: amLODIPine 10 MG TAB PO (07:52)
[2021-01-30] MEDS: Lisinopril 10 MG TAB PO (07:52)
[2021-01-30] MEDS: Pravastatin 20 MG TAB 10 MG PO (07:53)
[2021-01-30] MEDS: Letrozole 2.5 MG TAB PO (10:01)
--- NOTE | 2021-01-30 10:37 | INITIAL_ITS ---
- If Service Date Differs Date of service: 01/30/21 Time of Service: 10:38 Care Management Initial Assess REASON FOR HOSPITALIZATION:: Cervical spine fractures PAST MEDICAL HISTORY/PAST SURGICAL HISTORY:: hypertension, hyperlipidemia, obesity morbid; BMI 40-49 PREVIOUS FUNCTIONAL STATUS/SOCIAL/FAMILY SUPPORTS:: Resides in [place], - [place]. Independent at baseline. CURRENT FUNCTIONAL STATUS:: Emilia was lying in bed with a neck brace on. Her was at her bedside. She expressed frustration at having to remain at [facility] for five more days due to [facility] [place] recommendations. Dr. Hussein entered room during CM visit, stating he wanted to observe her BPs overnight, but thought she may be able to discharge tomorrow. Emilia was relieved and expressed feeling well cared for by [facility] staff. ADVANCE DIRECTIVES:: On file, [place] as agent, Janee Gutierrez as alternate. Others include Marlen Bright of [employer]. Has patient been provided with info about the portal/API?: Yes Did the patient sign up for the portal?: No CODE STATUS:: Full Code INSURANCE COVERAGE / FINANCIAL ISSUES:: [place]. Medicare CURRENT HOME/COMMUNITY SERVICES/EQUIPMENT:: None, currently. PRIMARY CARE PHYSICIAN:: Cervical spine fractures POTENTIAL DISCHARGE NEEDS:: Follow up appointments, evaluations for additional needs. PATIENT/FAMILY EDUCATION NEEDS:: Review discharge instructions, discuss Ask Me Three. ANTICIPATED BARRIERS TO DISCHARGE:: None identified. TRANSPORTATION:: Emilia will transport via private vehicle. PLAN:: Emilia will discharge home when ready per MD. She will follow up with her PCP and plan of care as prescribed. She will transport via private vehicle with her .
[2021-01-30 11:53] LABS: COVID-19 PCR Negative (Negative)
--- NOTE | 2021-01-30 14:15 | IN_ITS ---
Date of service: 01/30/21 Time of Service: 14:15 PT Notes Visit Reasons: Cervical Spine Fractures Physical Therapy Inpatient Initial Evaluation Date: 01/30/2021 Referring Doctor: Dion Hussein MD PT Orders: PT CONSULT: Eval/treat Precautions: Fall. Cervical collar ordered by hospitalist to be taken off during PT evaluation, worn for comfort only. Patient Profile/Admitting Diagnosis: Patient is a 70-year-old female who presented to the ED very early this morning due to L-sided shoulder pain, burning pain in hand and in 2nd-4th fingers after a mechanical fall. MRI cervical spine impression as follows: 1. Acute fractures involving the C6, C7 and T1 spinous processes. Associated edema in the surrounding soft tissues of the posterior neck. 2. Subtle small focus of hyperintense signal in the central spinal canal posterior to the C5 vertebral body. This may represent acute spinal cord injury. 3. Multilevel degenerative changes in the cervical spine resulting in central spinal canal and neural foraminal stenosis as described above. PMHX: Unremarkable Social History/Home Situation: Lives with in a private home with 2 steps to enter, without rails. She has 13 steps to the third floor of the house and another flight down to the first floor. Equipment Owned/DME: Walking stick Subjective: Reports stiffness in the neck and pain in the forearm, hand, and fingers on the left side at 6-7/10. Denies dizziness, headache, and chest pain throughout session. Objective: General Observation: Supine in bed. HOB at 45 degrees. [place] cervical collar on. Nurse Santa setting up IV in L UE. Mental Status: Alert and oriented as to person, place, time, and purpose. Able to pay attention, focus, and respond appropriately. Pain: 6-7/10 along the distributionof the C6-C7 dermatome ROM: Right Upper Extremity: Shoulder Flexion WFL. Shoulder abduction WFL. Elbow flexion WFL. Wrist flexion WFL. Functional opening and closing of hand WFL. Left Upper Extremity: Shoulder Flexion WFL. Shoulder abduction WFL. Elbow flexion WFL. Wrist flexion WFL. Functional opening and closing of hand WFL. Right Lower Extremity: Hip flexion WFL. Hip abduction WFL. Knee flexion WFL. Ankle dorsiflexion WFL. Ankle plantarflexion WFL. Left Lower Extremity: Hip flexion WFL. Hip abduction WFL. Knee flexion WFL. Ankle dorsiflexion WFL. Ankle plantarflexion WFL. Strength: Right Upper Extremity: Shoulder flexors 5/5. Shoulder abductors 5/5. Elbow flexors 5/5. Elbow extensors 5/5. Special Officer strong. Left Upper Extremity: Shoulder flexors 5/5. Shoulder abductors 5/5. Elbow flexors 5/5. Elbow extensors 5/5. Special Officer weaker than left but functional. Right Lower Extremity: Hip flexors 5/5. Hip abductors 5/5. Knee flexors 5/5. Knee extensors 5/5. Ankle dorsiflexors 5/5. Ankle plantarflexors 5/5. Left Lower Extremity: Hip flexors 5/5. Hip abductors 5/5. Knee flexors 5/5. Knee extensors 5/5. Ankle dorsiflexors 5/5. Ankle plantarflexors 5/5. Bed Mobility/Transfers: Supine to sit independent Sit to supine independent Sit to stand supervision Stand to sit supervision Bed to reclining chair supervision Reclining chair to bed supervision Gait: Instructed patient with level surface ambulation of 250 feet requiring supervision assist without an AD. Aranza decreased. Did indincate continues stiffness in posterior neck muscles and pain along the distribution of the C6-C7 dermatomal level. Balance: Static Sitting: Normal Dynamic Sitting: Normal Static Standing: Good Dynamic Standing: Good Special Tests: Mobility Limitations Standardized Measure [facility] AM-PAC 6 clicks Basic Mobility Inpatient Short Form: Raw Score: 24 CMS Score: 0% deficit Informed Consent/Education: Patient was instructed in purpose of PT consult and plan of care. Agreeable to proceed with established PT POC to achieve personal goals. Assessment: C6?C7 dermatome impaired. Continued report of neck stiffness. C6, C7, T1 myotomes intact. Emilia is able to perform level surface ambulation without an assistive device for up to quarter of a mile. No change in strength in bilateral lower extremities. Patient presents with clinical signs and symptoms consistent with current/admitting diagnoses that have resulted to mobility limitations, gait instability, generalized weakness, and overall ADL decline as demonstrated by the following impairment level findings: 1. Affectation to C6-C7 with pain at 6?7/10 along dermatomal distribution Impairments are contributing to the following functional limitations: 1. Decreased aranza Patient is assessed as a 24528 moderate complexity based on the following: History: 70-year-old female with past medical history as indicated above Examination: Demonstrable impairment in strength, balance, and mobility level with underlying impairments and functional limitations as exhibited above as w ell as deficit score of 0% utilizing the [facility] Mobility Inpatient Short Form Presentation: Evolving Decision Makin moderate complexity Goals: Goals X1 week 1. Supine-Sit independent 2. Sit-Supine independent 3. Sit-Stand independent 4. Stand-Sit independent 5. Bed-Chair independent 6. Chair-Bed independent 7. Independent gait on level surface with use of no AD for at least 500 feet without report of pain 8. Independent stair negotiation while holding onto no rails for at least 13 steps without report of pain nor dyspnea 9. Independent with home exercise program 10. Good static and dynamic standing balance/tolerance Plan of Care/Treatment Plan: 1-2x/day, 7 days/week x 1 week. Plan of care has been reviewed with the RACK WORKER providing the service under Physical Therapy direction. Initiate Physical Therapy intervention for pain management as needed, strengthening, bed mobility, transfers, gait, stairs, balance training, and use of assistive device. DISCHARGE RECOMMENDATIONS: Home when medically cleared by hospitalist. No equipment needs at this time. Keep cervical collar within reach should pain level get out of control. TREATMENT CODE/TIME: 47281 x 20 minutes, 77787 x 17 minutes beginning at 14:15 PM. Thank you for the opportunity to participate in the care of this patient. Mayuri Cason PT, DPT, CLT [facility] [place], [place]
[2021-01-30] MEDS: Lactated Ringers 1,000 ML 80 ML IV (14:26)
[2021-01-30] MEDS: Normal Saline Flush 10 ML SYR IVP (14:27)
--- NOTE | 2021-01-30 17:03 | CHAPLAIN ---
When I visited Lauren this morning she was sitting up bed. She told me about her fall down a set of stairs. She was admitted last night and said she hadn't slept well so was hoping to nap today. She expected her to be in for a visit after visiting hours began.
[2021-01-30] MEDS: Zolpidem 10 MG TAB PO (21:17)
[2021-01-31] MEDS: Acetaminophen 325 MG TAB 650 MG PO ×2 (01:00→05:01)
[2021-01-31] MEDS: Lactated Ringers 1,000 ML 80 ML IV (05:01)
[2021-01-31 07:30] VITALS: BP 130/80; PULSE 102; RESP 20; TEMP 37; O2SAT 98
--- NOTE | 2021-01-31 08:34 | DSE_ITS ---
Date of service: 01/31/21 Time of Service: 08:34 DS: Diagnosis Discharge Diagnosis (1) Fracture of spinous process of cervical vertebra: Status: Acute Discharge Plan Disposition Patient Disposition: HOME Condition: Stable Discharge Details Reason For Visit: Cervical Spine Fractures Admit Date/Time: 01/30/21 03:27 Admit Provider: Leandro Waters Attending Provider: Leandro Waters Primary Care Provider: Elham Major Hospital Course Hospital Course: After taking Ambien went to turn heat on and fell down basement stairs. C/o a little neck and left shoulder pain, but mainly that her left hand is burning. No LE symptoms. In ER findings of note for fractures of the spinous processes of C6-T1. [place] [facility], advised MRI and, if negative, standing C-spines. CT head and plain films of shoulder and hand were negative. Patient has received Toradol, MS, Zofran and Valium. PT/OT evaluated pt. They cleared her for d/c to home with pain management. Need f/u with PCP this coming Friday or Friday. HOLD AMLODIPINE FOR 4 DAYS; 01/31, , , . Home Meds and New Rx's Prescriptions: Continued levothyroxine 150 MCG tablet 137 mcg PO DAILY RF: 0 zolpidem [Ambien] 5 MG tablet 10 mg PO PRN RF: 0 letrozole 2.5 MG tablet 2.5 mg PO DAILY RF: 0 pravastatin 10 mg Tablet 10 mg PO DAILY RF: 0 amlodipine 10 mg Tablet 10 mg PO DAILY RF: 0 lisinopril 10 mg Tablet 10 mg PO DAILY RF: 0 Discharge Instructions Instructions: Spinal Cord Injury (GEN), Spinous Process Fracture (DC) Stand Alone Forms: Nursing Discharge Form Referrals: Elham Major [Primary Care Provider] - 02/05/21 11:00 am Activity:: Wear C-collar for 4 days Equipment/Supplies:: No Equipment Needed Diet:: Resume home diet Discharge Orders Discharge Orders: Discharge Order (Routine); Ordered 01/31/21 Ordered By: Dion Hussein Discharge Data Discharge Date/Time-TO BE ENTERED AT DEPARTURE: 01/31/21 10:09 DS: Summary Time Spent with Patient providing and/or coordinating discharge services: Less than 30 minutes Status at Discharge Functional status at discharge: independent ambulation Overall status at discharge: patient is progressing back to baseline Mental Status: mental status grossly normal Speech and Movement: speech and movement normal Mood: congruent mood Affect: normal affect Exam Psych Mental Status: mental status grossly normal Speech and Movement: speech and movement normal Mood: congruent mood Affect: normal affect DS: Data Vitals/I&O Vitals and I&O: Vital Signs Temperature 37.0 C 01/31/21 07:30 Temperature Source Temporal Artery Scan 01/31/21 07:30 Pulse 102 H 01/31/21 07:30 Pulse Rhythm Regular 01/30/21 23:50 Respiratory Rate 20 01/31/21 07:30 Respiratory Effort Non-Labored 01/30/21 23:50 Respiratory Depth Normal 01/30/21 23:50 Respiratory Pattern Normal 01/30/21 23:50 Blood Pressure 130/80 01/31/21 07:30 Blood Pressure Mean 71 01/30/21 03:32 Blood Pressure Position Supine 01/30/21 00:31 Pulse Oximetry 98 01/31/21 07:30 Oxygen Delivery Method Room Air 01/31/21 07:30 Oxygen Flow Rate 0 01/31/21 07:30 Pain Level 0 01/31/21 07:30 Comment 01/30/21 02:21 Intake & Output 01/30/21 01/30/21 01/31/21 11:59 23:59 11:59 Intake Total 500 / 510 10 / 510 1000 / 1000 Output Total 200 / 600 400 / 600 150 / 150 Balance 300 / -90 -390 / -90 850 / 850 Weight 63.796 kg Intake: IV 500 / 510 10 / 510 1000 / 1000 Output: Urine 200 / 600 400 / 600 150 / 150 Other: Urine Color Straw Yellow Yellow Urine Appearance Clear Clear Cloudy Urine Odor Normal Normal Normal Voiding Methods Bedpan Toilet Toilet Data Completed and Pending Labs on day of discharge: Labs from last 24 hours 01/30/21 02:50 SARS-CoV-2 (PCR) Negative [facility] Social History Smoking/Tobacco Use Status: Former Tobacco Use Smoking risk assessment performed?: Yes Alcohol Intake: current Alcohol Intake frequency: a few times a week Drug use: Never Substance use type: does not use Do you feel safe at home: Yes Do you feel safe in your relationship?: Yes
[2021-01-31] MEDS: Pravastatin 20 MG TAB 10 MG PO (08:39)
[2021-01-31] MEDS: Letrozole 2.5 MG TAB PO (08:39)
--- NOTE | 2021-01-31 09:52 | OT.INNT ---
Date of service: 01/31/21 Time of Service: 09:52 Occupational Therapy Notes 01/31/21 OT consult received and pts chart was reviewed. OT attempted to consult with pt. She was sitting in her bed with IV in (R) UE connnected. She states that she is (I) at her baseline level of function. She notes that she is going home today at 10 and is not interested in OT consult and she states that she can perform all of her ADLs without (A). She reports that she does not feel that any further services are needed here at [facility]. She states that she will have no issues when she returns home.OT was able to perform her strength, her (L) refrigerator crater is less than her (R). ROM WFL within limitations due to fxs of her back/neck. She states that she does not need any adaptive equipment. Visually she has Dupuytrens contractures on (B) hands with cord-like tendons which she reports is not an issue at this time. She denies the need for further assessment or performance of any ADLs. OT discussed baseline level of function and current level of function with pt for 10 minutes. Pt refuses need for services due to discharge today. OT will considered pt discharged from skilled OT services at this time. No charge for todays session. Dennise Starr, OTR/[facility]
--- NOTE | 2021-01-31 10:11 | PDOC.CMDIS ---
LACE Index Scoring Tool - Questions: Length of Stay (in days): 1 Acuity (Admit via E.D.?): Yes E.D. Visits: 2 - Answers: Total Score: 6 Risk of Readmission: Low Risk Care Management Discharge Reason for Hospitalization: Cervical spine fractures Discharge Plan: Emilia will discharge home when ready per MD. She will follow up with her PCP and plan of care as prescribed. She will transport via private vehicle with her . Patient/Family Education Needs: Review of discharge instructions, discuss Ask Me Three.
--- NOTE | 2021-01-31 17:30 | INDS_ITS ---
Date of service: 01/31/21 PT Notes Visit Reasons: Cervical Spine Fractures Physical Therapy Inpatient Discharge Summary Date: 01/31/2021 Date of service: 01/30/2021 only This is a clinical summary of care provided for the duration of dates listed above. No charge was made in the completion of this documentation. Referring Doctor: Dion Hussein MD PT Orders: PT CONSULT: Eval/treat Precautions: Fall. Cervical collar ordered by hospitalist to be taken off during PT evaluation, worn for comfort only. Patient Profile/Admitting Diagnosis: Patient is a 70-year-old female who presented to the ED very early this morning due to L-sided shoulder pain, burni ng pain in hand and in 2nd-4th fingers after a mechanical fall. MRI cervical spine impression as follows: 1. Acute fractures involving the C6, C7 and T1 spinous processes. Associated edema in the surrounding soft tissues of the posterior neck. 2. Subtle small focus of hyperintense signal in the central spinal canal posterior to the C5 vertebral body. This may represent acute spinal cord injury. 3. Multilevel degenerative changes in the cervical spine resulting in central spinal canal and neural foraminal stenosis as described above. PMHX: Unremarkable Social History/Home Situation: Lives with in a private home with 2 steps to enter, without rails. She has 13 steps to the third floor of the house and another flight down to the first floor. Equipment Owned/DME: Walking stick Subjective: NT. See most recent [facility] notes. Objective: General Observation: NT. See most recent [facility] HE[facility] SANITARIAN notes. Mental Status: NT. See most recent [facility] HEALTH SANITARIAN notes. Pain: NT. See most recent [facility] HE[facility] SANITARIAN notes. ROM: Right Upper Extremity: Shoulder Flexion WFL. Shoulder abduction WFL. Elbow flexion WFL. Wrist flexion WFL. Functional opening and closing of hand WFL. Left Upper Extremity: Shoulder Flexion WFL. Shoulder abduction WFL. Elbow flexion WFL. Wrist flexion WFL. Functional opening and closing of hand WFL. Right Lower Extremity: Hip flexion WFL. Hip abduction WFL. Knee flexion WFL. Ankle dorsiflexion WFL. Ankle plantarflexion WFL. Left Lower Extremity: Hip flexion WFL. Hip abduction WFL. Knee flexion WFL. Ankle dorsiflexion WFL. Ankle plantarflexion WFL. Strength: Right Upper Extremity: Shoulder flexors 5/5. Shoulder abductors 5/5. Elbow flexors 5/5. Elbow extensors 5/5. Steamfitter strong. Left Upper Extremity: Shoulder flexors 5/5. Shoulder abductors 5/5. Elbow flexors 5/5. Elbow extensors 5/5. Steamfitter weaker than left but functional. Right Lower Extremity: Hip flexors 5/5. Hip abductors 5/5. Knee flexors 5/5. Knee extensors 5/5. Ankle dorsiflexors 5/5. Ankle plantarflexors 5/5. Left Lower Extremity: Hip flexors 5/5. Hip abductors 5/5. Knee flexors 5/5. Knee extensors 5/5. Ankle dorsiflexors 5/5. Ankle plantarflexors 5/5. Bed Mobility/Transfers: Supine to sit independent Sit to supine independent Sit to stand supervision Stand to sit supervision Bed to reclining chair supervision Reclining chair to bed supervision Gait: Instructed patient with level surface ambulation of 250 feet requiring s upervision assist without an AD. Aranza decreased. Did indincate continues stiffness in posterior neck muscles and pain along the distribution of the C6-C7 dermatomal level. Balance: Static Sitting: Normal Dynamic Sitting: Normal Static Standing: Good Dynamic Standing: Good Assessment: C6?C7 dermatome impaired. Continued report of neck stiffness. C6, C7, T1 myotomes intact. Emilia is able to perform level surface ambulation without an assistive device for up to quarter of a mile. No change in strength in bilateral lower extremities. Per Dr. Hussein, patient has refused recommendation of going to a tertiary hospital for potential cervical SP process fracture surgery. Patient presents with clinical signs and symptoms consistent with current/admitting diagnoses that have resulted to mobility limitations, gait instability, generalized weakness, and overall ADL decline as demonstrated by the following impairment level findings: 1. Affectation to C6-C7 with pain at 6?7/10 along dermatomal distribution Impairments are contributing to the following functional limitations: 1. Decreased aranza Goals: Goals X1 week 1. Supine-Sit independent NOT MET 2. Sit-Supine independent NOT MET 3. Sit-Stand independent NOT MET 4. Stand-Sit independent NOT MET 5. Bed-Chair independent NOT MET 6. Chair-Bed independent NOT MET 7. Independent gait on level surface with use of no AD for at least 500 feet without report of pain NOT MET 8. Independent stair negotiation while holding onto no rails for at least 13 steps without report of pain nor dyspnea NOT MET 9. Independent with home exercise program NOT MET 10. Good static and dynamic standing balance/tolerance NOT MET DISCHARGE RECOMMENDATIONS: Home when medically cleared by hospitalist. No equipment needs at this time. Keep cervical collar within reach should pain level get out of control. TREATMENT CODE/TIME: [place] Thank you for the opportunity to participate in the care of this patient. Mayuri Cason PT, DPT, CLT [facility] [place], [place]
== END 2021-01-31 10:09 | disposition home or self-care (01) ==
LOC: ER 04:17 → MS 04:20
PROVIDERS: Admitting Provider General Practice; Emergency Provider Physician Assistant; PCP Nurse Practitioner Family; Visit Provider General Practice
DX: S12.590A Other displaced fracture of sixth cervical vertebra, initial encounter for closed fracture (principal); S12.690A Other displaced fracture of seventh cervical vertebra, initial encounter for closed fracture; S22.018A Other fracture of first thoracic vertebra, initial encounter for closed fracture; W10.8XXA Fall (on) (from) other stairs and steps, initial encounter; M54.12 Radiculopathy, cervical region; Z87.891 Personal history of nicotine dependence; Z20.822 Contact with and (suspected) exposure to COVID-19
CPT/HCPCS: 87635; 96361; 96374; 96375; 97162; 97530; 99285; 70450; 72125; 72128; 72141; 73030; 73110; 73130; 99219; G0378; J1885; J2405

== ENCOUNTER 2021-03-19 13:48 | Outpatient (REF) | payer MEDICARE, SELFPAY ==
[2021-03-19 22:17] LABS: ALT 25 U/L (14-59); AST 19 U/L (15-37); Albumin 4.1 g/dL (3.4-5.0); Alkaline Phosphatase 67 U/L (46-116); Anion Gap 12.7 mmol/L (3-11); BUN 21 mg/dL (7-18); Bilirubin, Total 0.3 mg/dL (0.2-1.0); CO2 23.3 mmol/L (21.0-32.0); CREATININE 1.1 mg/dL (0.55-1.02); Calcium 9.1 mg/dL (8.5-10.1); Calculated LDL 114 mg/dL (<100); Chloride 103 mmol/L (98-107); Cholesterol 223 mg/dL (<200); Estimated GFR 48.96 (mL/min/1.73m2); Glucose 96 mg/dL (74-106); HDL Cholesterol 71 mg/dL (40-60); Magnesium 2.3 mg/dL (1.8-2.4); Potassium 4.4 mmol/L (3.5-5.1); Sodium 139 mmol/L (136-145); TSH 1.79 uIU/mL (0.36-3.74); Total Protein 7.6 g/dL (6.4-8.2); Triglyceride 194 mg/dL (<150)
[2021-03-19 22:34] LABS: FREE T4 1.14 ng/dL (0.76-1.46)
== END 2021-03-19 13:49 | disposition home or self-care (01) ==
LOC: NCHCN 13:48
PROVIDERS: PCP Nurse Practitioner Family; Visit Provider Nurse Practitioner Family
DX: E05.90 Thyrotoxicosis, unspecified without thyrotoxic crisis or storm (principal); I10 Essential (primary) hypertension; M81.0 Age-related osteoporosis without current pathological fracture
CPT/HCPCS: 80053; 80061; 83735; 84100; 84439; 84443; 84481

== ENCOUNTER 2021-06-15 12:03 | Outpatient (REF) | payer OTHER, SELFPAY ==
[2021-06-15 16:54] LABS: ALT 29 U/L (14-59); AST 22 U/L (15-37); Albumin 4.2 g/dL (3.4-5.0); Alkaline Phosphatase 60 U/L (46-116); Anion Gap 12.9 mmol/L (3-11); BUN 19 mg/dL (7-18); Bilirubin, Total 0.3 mg/dL (0.2-1.0); CO2 21.1 mmol/L (21.0-32.0); CREATININE 1.1 mg/dL (0.55-1.02); Calcium 8.8 mg/dL (8.5-10.1); Calculated LDL 105 mg/dL (<100); Chloride 106 mmol/L (98-107); Cholesterol 223 mg/dL (<200); Estimated GFR 48.96 (mL/min/1.73m2); Glucose 88 mg/dL (74-106); HDL Cholesterol 91 mg/dL (40-60); Potassium 4.8 mmol/L (3.5-5.1); Sodium 140 mmol/L (136-145); Triglyceride 136 mg/dL (<150)
== END 2021-06-15 12:04 | disposition home or self-care (01) ==
LOC: NCHCN 12:03
PROVIDERS: PCP Nurse Practitioner Family; Visit Provider Nurse Practitioner Family
DX: I10 Essential (primary) hypertension (principal); E78.5 Hyperlipidemia, unspecified
CPT/HCPCS: 80053; 80061

== ENCOUNTER 2021-12-27 15:34 | Outpatient (REF) | payer MEDICARE, SELFPAY ==
[2021-12-27 15:13] LABS: Anion Gap 8.2 mmol/L (3-11); BUN 16 mg/dL (7-18); CO2 25.8 mmol/L (21.0-32.0); CREATININE 1.1 mg/dL (0.55-1.02); Calcium 9.5 mg/dL (8.5-10.1); Chloride 104 mmol/L (98-107); Estimated GFR 53.39 (mL/min/1.73m2); FREE T4 1.47 ng/dL (0.76-1.46); Glucose 90 mg/dL (74-106); Magnesium 2.1 mg/dL (1.8-2.4); Potassium 4.7 mmol/L (3.5-5.1); Sodium 138 mmol/L (136-145); TSH 0.63 uIU/mL (0.36-3.74)
[2021-12-27 15:26] LABS: Vitamin D 25 Total 14.4 ng/mL (30-100)
[2021-12-27 21:45] LABS: T3,Free 3.4 pg/mL (2.8-5.3)
== END 2021-12-27 15:35 | disposition home or self-care (01) ==
LOC: NCHCN 15:34
PROVIDERS: PCP Nurse Practitioner Family; Visit Provider Nurse Practitioner Family
DX: E05.90 Thyrotoxicosis, unspecified without thyrotoxic crisis or storm (principal); M81.0 Age-related osteoporosis without current pathological fracture; I10 Essential (primary) hypertension
CPT/HCPCS: 80048; 82306; 83735; 84439; 84443; 84481

== ENCOUNTER → 2022-01-23 00:59 | Outpatient (CLI) | payer MEDICARE, SELFPAY ==
--- NOTE | 2022-01-23 11:15 | DI.MAMMO_ITS ---
Exam(s) MG MAMMO SCREENING 60 MIN DUR EXAM: MG MAMMO SCREENING 60 MIN DUR CLINICAL HISTORY: PERSONAL H/O BREAST CA, Z85.3 TECHNIQUE: Mammograms were interpreted according to the usual protocol including computer analysis w [employer] CAD system, tomosynthesis and C-view imaging. COMPARISON: FINDINGS: Note is made of a prior right lumpectomy for breast carcinoma. The breasts are heterogeneously dense . No dominant mass or clumped microcalcification is identified in either breast. The current examin ation is compared with previous examinations including January 2021 and there has been no gross inter ricardo change in appearance in comparison with the prior studies. IMPRESSION: No specific evidence of malignancy at this time. Routine screening examinations are suggested at yea rly intervals due to the history of breast carcinoma. BI-RADS Category 1 - Negative Breast Density - Category C - Heterogeneously dense
== END ==
PROVIDERS: PCP Nurse Practitioner Family; Visit Provider Nurse Practitioner Family
DX: Z12.31 Encounter for screening mammogram for malignant neoplasm of breast (principal); R92.8 Other abnormal and inconclusive findings on diagnostic imaging of breast
CPT/HCPCS: 77063; 77067

== ENCOUNTER 2022-07-09 17:27 | Outpatient (REF) | payer MEDICARE, SELFPAY ==
[2022-07-09 17:40] LABS: Anion Gap 13.3 mmol/L (3-11); BUN 23 mg/dL (7-18); CO2 22.7 mmol/L (21.0-32.0); CREATININE 1.2 mg/dL (0.55-1.02); Calcium 9.9 mg/dL (8.5-10.1); Chloride 104 mmol/L (98-107); Estimated GFR 48.09 (mL/min/1.73m2); Glucose 108 mg/dL (74-106); Potassium 4.5 mmol/L (3.5-5.1); Sodium 140 mmol/L (136-145)
[2022-07-09 18:23] LABS: Vitamin D 25 Total 20.8 ng/mL (30-100)
== END 2022-07-09 17:28 | disposition home or self-care (01) ==
LOC: NCHCN 17:27
PROVIDERS: PCP Nurse Practitioner Family; Visit Provider Nurse Practitioner Family
DX: I10 Essential (primary) hypertension (principal); E78.5 Hyperlipidemia, unspecified; E05.90 Thyrotoxicosis, unspecified without thyrotoxic crisis or storm; M81.0 Age-related osteoporosis without current pathological fracture
CPT/HCPCS: 80048; 82306

== ENCOUNTER 2023-01-07 18:11 | Outpatient (REF) | payer MEDICARE, SELFPAY ==
[2023-01-07 22:30] LABS: Anion Gap 14.8 mmol/L (3-11); BUN 19 mg/dL (7-18); CO2 22.2 mmol/L (21.0-32.0); CREATININE 1.1 mg/dL (0.55-1.02); Calcium 9.8 mg/dL (8.5-10.1); Chloride 97 mmol/L (98-107); Estimated GFR 53.06 (mL/min/1.73m2); Glucose 97 mg/dL (74-106); Potassium 4.9 mmol/L (3.5-5.1); Sodium 134 mmol/L (136-145)
== END 2023-01-07 18:12 | disposition home or self-care (01) ==
LOC: NCHCN 18:11
PROVIDERS: Visit Provider Nurse Practitioner Family
DX: I10 Essential (primary) hypertension (principal); E78.5 Hyperlipidemia, unspecified; E05.90 Thyrotoxicosis, unspecified without thyrotoxic crisis or storm; M81.0 Age-related osteoporosis without current pathological fracture; G47.00 Insomnia, unspecified; Z85.3 Personal history of malignant neoplasm of breast
CPT/HCPCS: 80048; 82306; 84439; 84443

== ENCOUNTER → 2023-01-24 02:59 | Outpatient (CLI) | payer MEDICARE, SELFPAY ==
--- NOTE | 2023-01-24 11:13 | DI.MAMMO_ITS ---
Exam(s) MG MAMMO SCREENING 60 MIN DUR EXAM: MG MAMMO SCREENING 60 MIN DUR CLINICAL HISTORY: SCREENING FOR BREAST CANCER Z12.39 PERS HX BREAST CANCER Z85.3 TECHNIQUE: Mammograms were interpreted according to the usual protocol including computer analysis w [employer] CAD system, tomosynthesis and C-view imaging. COMPARISON: 2015 through 2021 FINDINGS: The breasts are composed of heterogeneously dense fibroglandular densities, Breast Density category C . No suspicious masses or suspicious microcalcifications are seen. Post lumpectomy scarring and surgic al clips are again noted in the upper right breast. No skin thickening or abnormal axillary lymph nodes are seen. There has been no significant change from prior exams. IMPRESSION: BI-RADS Cat 2 - Benign Findings Yearly screening mammography is recommended. Breast Density Category C, heterogeneously Dense. The mammogram demonstrates the patient's breast tissue is dense. Dense breast tissue is very common a nd is not abnormal but dense breast tissue can make it harder to find cancer on a mammogram. Also, de nse breast tissue may increase breast cancer risk. This information about the result of the mammogram report was provided to the patient to raise their awareness. Use this report when you speak with the patient about their risks for breast cancer, which includes their family history. At that time, you may recommend additional screening tests (Ultrasound or MRI) as they might be useful based on their r isk. A negative radiographic report should not delay biopsy if a dominant or clinically suspicious mass is present. Up to ten percent of cancers are not identified on mammography. A negative report may reinforce clinical impression. Adenosis and dense breasts may obscure an underlying neoplasm. False positive reports average 6 to 10%.
== END ==
PROVIDERS: Visit Provider Nurse Practitioner Family
DX: Z12.31 Encounter for screening mammogram for malignant neoplasm of breast (principal); Z85.3 Personal history of malignant neoplasm of breast; R92.333 Mammographic heterogeneous density, bilateral breasts
CPT/HCPCS: 77063; 77067

== ENCOUNTER 2023-02-25 15:32 | Outpatient (REF) | payer MEDICARE, SELFPAY ==
[2023-02-25 18:06] LABS: Anion Gap 12.6 mmol/L (3-11); BUN 26 mg/dL (7-18); CO2 22.4 mmol/L (21.0-32.0); CREATININE 1.4 mg/dL (0.55-1.02); Chloride 101 mmol/L (98-107); Estimated GFR 39.73 (mL/min/1.73m2); Glucose 100 mg/dL (74-106); Potassium 5.6 mmol/L (3.5-5.1); Sodium 136 mmol/L (136-145); TSH (W/Ref FT4) 1.76 uIU/mL (0.36-3.74)
== END 2023-02-25 15:33 | disposition home or self-care (01) ==
LOC: NCHCN 15:32
PROVIDERS: PCP Nurse Practitioner Family; Visit Provider Nurse Practitioner Family
DX: I10 Essential (primary) hypertension (principal); E05.90 Thyrotoxicosis, unspecified without thyrotoxic crisis or storm
CPT/HCPCS: 80048; 84443

== ENCOUNTER → 2023-03-05 02:01 | Outpatient (CLI) | payer MEDICARE, SELFPAY ==
--- NOTE | 2023-03-05 | DI.US_ITS ---
Exam(s) US RENAL EXAM: US RENAL CLINICAL HISTORY: CHRONIC KIDNEY DISEASE,N18.30. TECHNIQUE: Auguste scale, color and spectral Doppler were used. COMPARISON: No exams were available for comparison FINDINGS: Renal size in cm: Right: 10.3 left: 10.3 Echogenicity: Normal Hydronephrosis: No Cyst or mass: Circumscribed hyperechoic 9 millimeter diameter focus at the mid lateral left kidney co nsistent with angiomyolipoma. No follow-up recommended. Nephrolithiasis: No Bladder:Normal. Left ureteral jet not visualized. Prevoid vol:153 cc Postvoid vol:0 cc IMPRESSION: No evidence of hydronephrosis or nephrolithiasis.. DATA REPOSITORY:
== END ==
PROVIDERS: PCP Nurse Practitioner Family; Visit Provider Nurse Practitioner Family
DX: N18.30 Chronic kidney disease, stage 3 unspecified (principal)
CPT/HCPCS: 76770

== ENCOUNTER 2023-03-11 17:47 | Outpatient (REF) | payer MEDICARE, SELFPAY ==
[2023-03-11 21:18] LABS: Anion Gap 10.3 mmol/L (3-11); BUN 24 mg/dL (7-18); CO2 26.7 mmol/L (21.0-32.0); CREATININE 1.1 mg/dL (0.55-1.02); Calcium 10.2 mg/dL (8.5-10.1); Chloride 102 mmol/L (98-107); Estimated GFR 53.06 (mL/min/1.73m2); Glucose 136 mg/dL (74-106); Potassium 5.3 mmol/L (3.5-5.1); Sodium 139 mmol/L (136-145)
== END 2023-03-11 17:48 | disposition home or self-care (01) ==
LOC: NCHCN 17:47
PROVIDERS: PCP Nurse Practitioner Family; Visit Provider Nurse Practitioner Family
DX: I10 Essential (primary) hypertension (principal)
CPT/HCPCS: 80048

== ENCOUNTER 2023-08-28 06:58 | Emergency (ER) | payer MEDICARE, SELFPAY ==
--- NOTE | 2023-08-28 07:04 | ED.GENADUL_ITS ---
Discharge Plan Disposition Patient Disposition: Home Discharge Details Clinical Impression: Immunization, tetanus-diphtheria, Hx of falling, Laceration of scalp Primary Care Provider: Elham Major ED Provider: Vic Garcia Home Meds and New Rx's Prescriptions: Continued pravastatin 20 mg tablet 20 mg PO DAILY levothyroxine 125 mcg capsule 125 mcg PO DAILY alendronate 70 mg tablet 70 mg PO QWEEK letrozole 2.5 MG tablet 2.5 mg PO DAILY amlodipine 10 mg Tablet 10 mg PO DAILY lisinopril 10 mg Tablet 10 mg PO DAILY Discontinued zolpidem [Ambien] 5 MG tablet 10 mg PO PRN Discharge Instructions Additional Instructions: You were seen in the emergency department for your [ ] laceration which was closed with [ ] james that will need to be removed in 7 to 10 days. As we discussed, please keep your wound clean, dry and covered. Please do not soak in a tub, swim or engage in any activities which could introduce dirt into your wound. You may return to the emergency department, go to urgent care or go to your primary care provider in 7 to 10 days to have your stitches removed. As we discussed if you develop any foul-smelling drainage fevers streaking signs of infection or have any other concerns please return to the emergency department. For your pain please take medications as follows: 1. Take acetaminophen (Tylenol), 1,000 mg (two 500 mg tabs) every 6 hours HPI General Date/Time Provider Initiated Documentation: 08/28/23 07:04 . HPI Narrative: MDM Primary survey intact. Reassuring shock index. On secondary survey patient has an approximately 5 cm occipital scalp laceration which will require primary closure following copious irrigation. Will update tetanus status. Given head strike and age will obtain CT head without contrast. Patient has been ambulatory since her fall so my suspicion for any pelvic pathology is low so I did not feel the patient required hip x-ray. Patient has not been nauseous nor vomiting and has a soft nontender abdomen so I am not suspicious for any intra- abdominal trauma. Will obtain chest x-ray given fall downstairs. Patient has not been vomiting nor had any diarrhea recently so my suspicion for any acute electrolyte abnormalities is low as I did not feel that the patient required assessment of her labs. No preceding chest pain nor syncope so I did not feel the patient required ECG. No shortness of breath to suggest PE. No indication for CT cervical spine based on Nexus criteria. Per Nexus criteria, cervical CT not obtained. The patient had no c-spine midline tenderness, no evidence of intoxication, was AAOx3, had no focal neurological deficits, and no painful distracting injuries. 8:[address] scan read as negative. No acute abnormalities on chest x-ray. Patient tolerated primary closure well with james. Tachycardia resolved without intervention. We discussed return indications including streaking signs of infection fevers any foul-smelling drainage or pus from her wound. She understood her return indications and was discharged with trial of expectant outpatient management. Chronic conditions affecting the care of the patient: Arthritis History obtained from an outside historian: N/A External record review: [facility] [place] EMR Medications: Acetaminophen Independent chest x-ray interpretation: No acute cardiopulmonary process on two-view chest. Right chest wall with radiopaque approximately 1 cm densities. Social determinants of health affecting disposition: N/A Management discussed with: N/A Treatment/interventions considered: N/A Response to therapies provided: N/A HPI This is a 72-year-old female arrived to the emergency department via private vehicle following a fall. Patient is on zolpidem. She apparently woke up during the night to use the restroom and tripped over her cat. She fell down a flight of stairs. She reportedly lost consciousness but subsequently had to get up ambulate and go back to bed. She woke up afterwards took a shower and came to the emergency department. She denies any preceding chest pain syncope nausea vomiting and shortness of breath. She denies dysuria and frequency. She denies any other complaints beyond a laceration to her scalp. She is having no neck pain. Exam General: Well-appearing in no acute distress speaking in complete sentences. Head: Normocephalic, on the posterior aspect of the patient's scalp she has a an approximately 5 cm hemostatic laceration that does not violate the galea but does violate the subcutaneous tissue.. Eye:[Pupils equal, round reactive to light.] Extraocular eye movements intact. No conjunctival injection. No scleral icterus. Ear, nose, mouth, throat: Grossly normal inspection. Normal voice, handling secretions normally. No hemotympanum bilaterally. No septal hematoma. Neck: Trachea midline. No midline cervical spinal tenderness. Cardiovascular: Well-perfused distal extremities. Regular rate and rhythm Respiratory: Nonlabored respiration. Clear lungs bilaterally. Gastrointestinal: Nondistended abdomen. Soft nontender. Musculoskeletal: No edema. Moving all 4 extremities spontaneously. Nontender bilateral upper and lower extremities. Back: No step-offs nor deformities. No midline thoracic nor lumbar spinal tenderness. Skin: Normal for age and race, grossly normal temperature and turgor. No acute rash. Neurologic: Alert and appropriate, no apparent acute deficits. GCS 15. Psychiatric: Mood and manner are appropriate. Grooming and personal hygiene are appropriate. Related Data Home Medications Medication Instructions Recorded Confirmed letrozole 2.5 mg tablet 2.5 mg PO DAILY 11/17/17 07/27/21 amlodipine 10 mg tablet 10 mg PO DAILY 12/03/20 07/27/21 lisinopril 10 mg tablet 10 mg PO DAILY 12/03/20 07/27/21 alendronate 70 mg tablet 70 mg PO QWEEK 07/27/21 07/27/21 levothyroxine 125 mcg capsule 125 mcg PO DAILY 07/27/21 07/27/21 pravastatin 20 mg tablet 20 mg PO DAILY 07/27/21 07/27/21 Allergies Allergy/AdvReac Type Severity Reaction Status Date / Time aspirin Allergy Severe ANAPHYLAXIS Verified 08/28/23 07:11 Penicillins AdvReac Mild RASH Verified 08/28/23 07:11 General CONSUELO: 3 Procedures Laceration Laceration 1: Site: scalp Size (cm): 5 Description: linear Depth: simple, single layer Local Anesthetic: other anesthetic (LET) Pre-repair: wound explored and irrigated extensively Skin layer closed with: other (8 james) Medical Decision Making Quality:SDOH Health Related Social Needs: No Data to Display PFSH All Active Problems (Updated 08/28/23 @ 07:26 by Vic Garcia MD) Laceration of scalp (Acute) Hx of falling (Acute) Immunization, tetanus-diphtheria (Acute) Osteoarthritis of carpometacarpal (CMC) joint of left thumb (Acute) Injected: 07/27/2021 Cellulitis (Acute) Fracture of spinous process of cervical vertebra (Acute) Fracture of spinous process of thoracic vertebra (Acute) Cervical radiculopathy (Acute) Arthritis of carpometacarpal (CMC) joint of right thumb (Chronic) Injected: 12/29/2017 Social History Smoking/Tobacco Use Status: Former Tobacco Use Smoking risk assessment performed?: Yes Alcohol Intake: current Alcohol Intake frequency: a few times a week Drug use: Never Substance use type: does not use Housing: house Do you feel safe at home: Yes Do you feel safe in your relationship?: Yes
[2023-08-28 07:05] VITALS: BP 147/87; PULSE 104; RESP 14; TEMP 36.8; O2SAT 99
--- NOTE | 2023-08-28 07:15 | DI.RAD_ITS ---
Exam(s) XR CHEST 2V PA LATERAL EXAM: XR CHEST 2V PA LATERAL CLINICAL HISTORY: History of fall. TECHNIQUE: 2D digital imaging was performed. COMPARISON: No exams were available for comparison FINDINGS: 2 views: Surgical clips noted in the right breast. Heart size is normal. The mediastinum is not widened. Lungs are clear. No infiltrates nor pleural effusions. IMPRESSION: No acute pulmonary findings. DATA REPOSITORY: RADIATION DOSE DELIVERED:
[2023-08-28] MEDS: Acetaminophen 500 MG TAB 1000 MG PO (07:29)
[2023-08-28] MEDS: Lidocaine/Epinephri/Tetracaine Topical Gel 3 ML TP (07:30)
[2023-08-28 07:58] VITALS: PULSE 94; O2SAT 98
--- NOTE | 2023-08-28 08:20 | DI.CT_ITS ---
Exam(s) CT HEAD WO EXAM: CT HEAD WO CLINICAL HISTORY: Fall scalp laceration. TECHNIQUE: Imaging Protocol: Axial computed tomography images with coronal and sagittal reformatted images were created and reviewed COMPARISON: CT CT HEAD CERVICAL SPINE WO from 01/30/2021 FINDINGS: There are no skull fractures. There is no fluid in the visualized paranasal sinuses. There is no evidence of intracranial hemorrhage, mass effect, or shift of midline structures. There are no extra-axial fluid collections. The ventricles are not enlarged or shifted and there is no blo od within the ventricular system nor within the basal cisterns. IMPRESSION: No acute intracranial findings on this noninfused CT scan of the brain. Called to ER. RADIATION DOSE DELIVERED: 652.48mGy.cm Total DLP DATA REPOSITORY: All CT scans at this facility are submitted to the National Radiology Data Registry (NRDR) Dose Index Registry (DIR) with the [employer] (ACR). RADIATION OPTIMIZATION: All CT scans at this facility use at least one of these dose optimization te chniques: automated exposure control; mA and/or kV adjustment per patient size (includes targeted exa ms where dose is matched to clinical indication); or iterative reconstruction.
[2023-08-28 08:55] VITALS: BP 160/73; PULSE 90; RESP 16; O2SAT 98
== END 2023-08-28 08:56 | disposition home or self-care (01) ==
PROVIDERS: Emergency Provider Emergency Medicine; PCP Nurse Practitioner Family
DX: S01.01XA Laceration without foreign body of scalp, initial encounter (principal); Z23 Encounter for immunization; Z87.891 Personal history of nicotine dependence; W10.8XXA Fall (on) (from) other stairs and steps, initial encounter; Y93.01 Activity, walking, marching and hiking; Y92.018 Other place in single-family (private) house as the place of occurrence of the external cause
CPT/HCPCS: 12002; 90471; 90715; 99284; 70450; 71046

== ENCOUNTER 2023-09-05 09:41 | Emergency (ER) | payer MEDICARE, SELFPAY ==
[2023-09-05 09:48] VITALS: BP 176/95; PULSE 103; RESP 18; TEMP 36.6; O2SAT 98
--- NOTE | 2023-09-05 10:02 | W.ED.GENAD ---
Discharge Plan Disposition Patient Disposition: Home Condition: Good Discharge Details Clinical Impression: Removal of kendrick Primary Care Provider: Elham Major ED Provider: Domenic Alves Home Meds and New Rx's Prescriptions: No Action pravastatin 20 mg tablet 20 mg PO DAILY levothyroxine 125 mcg capsule 125 mcg PO DAILY alendronate 70 mg tablet 70 mg PO QWEEK letrozole 2.5 MG tablet 2.5 mg PO DAILY metoprolol succinate 25 mg tablet extended release 24 hr 25 mg PO DAILY Patient Comments: TAKE ONE TABLET BY MOUTH EVERY DAY Discharge Instructions Additional Instructions: Kendrick have been removed. Please avoid scraping off the scab for the next week or 2. Apply a moisturizer once the scab has come off on its own. If you notice any worsening of your symptoms, or any new symptoms such as vomiting, diarrhea, fever, chills, shortness of breath, chest pain, numbness, weakness, or fainting , please return immediately to the emergency department for reevaluation. Please follow up with your primary care provider as soon as possible for reassessment and reevaluation. As always, it was a pleasure participating in your medical care today. Referrals: Elham Major [Primary Care Provider] - Discharge Data Discharge Date/Time-TO BE ENTERED AT DEPARTURE: 09/05/23 10:08 [facility] General Date/Time Provider Initiated Documentation: 09/05/23 10:02. [facility] Narrative: 72-year-old female presents today for removal of kendrick after scalp laceration. It has been 7 to 8 days since kendrick were placed. Patient has had no complaints and done well. She denies any redness or drainage or discharge. No other complaints at this time. Related Data Home Medications Medication Instructions Recorded Confirmed letrozole 2.5 mg tablet 2.5 mg PO DAILY 11/17/17 09/05/23 alendronate 70 mg tablet 70 mg PO QWEEK 07/27/21 09/05/23 levothyroxine 125 mcg capsule 125 mcg PO DAILY 07/27/21 09/05/23 pravastatin 20 mg tablet 20 mg PO DAILY 07/27/21 09/05/23 metoprolol succinate 25 mg 25 mg PO DAILY 09/05/23 09/05/23 tablet,extended release 24 hr Allergies Allergy/AdvReac Type Severity Reaction Status Date / Time aspirin Allergy Severe ANAPHYLAXIS Verified 05/24/24 09:53 Penicillins AdvReac Mild RASH Verified 09/05/23 09:53 General Stated Complaint: SutureRem CONSUELO: 4 Review of Systems All systems reviewed & are unremarkable except as noted in HPI and below Exam Narrative Exam Narrative: 1.Const: Well-nourished, Well-developed, appearing stated age 2.Eyes: PERRL, no conjunctival injection, and symmetrical lids. 3.ENT: Atraumatic external nose and ears. Moist MM. Neck: Symmetric, trachea midline, No thyromegaly. 4.CVS: +S1/S2, No murmurs or gallops. Peripheral pulses 2+ and equal in all extremities. Brisk capillary refill in all extremities. 5.RESP: Unlabored respiratory effort. Clear to auscultation bilaterally. No wheezes rales or rhonchi 6.GI: Soft, Nontender/Nondistended, No hepatosplenomegaly. No guarding or rebound. 7.MSK: Normocephalic/Atraumatic, Extremities w/o deformity or ttp No cyanosis or clubbing, Normal movement of all extremities 8.Skin: Patient has 8 kendrick in the scalp. Excellent wound edge reapproximation. Good healing. No redness drainage or bleeding. No pus. 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 Sensation grossly intact, no focal neurologic deficits. 10.Psych: (AAO) x3. Appropriate mood and affect Course Vital Signs Vital signs: Vital Signs Temperature 36.6 C 09/05/23 09:48 Pulse 103 H 09/05/23 09:48 Respiratory Rate 18 09/05/23 09:48 Blood Pressure 176/95 H 09/05/23 09:48 Pulse Oximetry 98 09/05/23 09:48 Temperature 36.6 C 09/05/23 09:48 Temperature Source Oral 09/05/23 09:48 Pulse 103 H 09/05/23 09:48 Respiratory Rate 18 09/05/23 09:48 Respiratory Effort Normal 09/05/23 09:52 Blood Pressure 176/95 H 09/05/23 09:48 Blood Pressure Position Sitting 09/05/23 09:48 Pulse Oximetry 98 09/05/23 09:48 Oxygen Delivery Method Room Air 09/05/23 09:48 Oxygen Flow Rate 0 09/05/23 09:48 Medical Decision Making 72-year-old female presents today for removal of kendrick after scalp laceration. It has been 7 to 8 days since kendrick were placed. Patient has had no complaints and done well. She denies any redness or drainage or discharge. No other complaints at this time. Kendrick were removed, all 8 of them. No dehiscence. Excellent wound edge reapproximation. No signs of infection. Patient will be discharged. I have extensively reviewed the treatment plan and discharge instructions with the patient and their family. I have addressed all patient concerns at this time. The patient and family was made aware of what symptoms to monitor for that would warrant a return to the emergency department. Discussed the plan with the patient and family, they demonstrate verbal understanding and agreement with our assessment and plan at this time. The documentation in this chart was dictated using [employer] dictation software. Please excuse any dictation errors. Quality:SDOH Health Related Social Needs: No Data to Display PFSH All Active Problems Removal of kendrick (Acute) Laceration of scalp (Acute) Hx of falling (Acute) Immunization, tetanus-diphtheria (Acute) Osteoarthritis of carpometacarpal (CMC) joint of left thumb (Acute) Injected: 07/27/2021 Cellulitis (Acute) Fracture of spinous process of cervical vertebra (Acute) Fracture of spinous process of thoracic vertebra (Acute) Cervical radiculopathy (Acute) Arthritis of carpometacarpal (CMC) joint of right thumb (Chronic) Injected: 12/29/2017 Social History Smoking/Tobacco Use Status: Former Tobacco Use Smoking risk assessment performed?: Yes Alcohol Intake: current Alcohol Intake frequency: a few times a week Drug use: Never Substance use type: does not use Housing: house Do you feel safe at home: Yes Do you feel safe in your relationship?: Yes
== END 2023-09-05 10:08 | disposition home or self-care (01) ==
PROVIDERS: Emergency Provider Student in an Organized Health Care Education/Training Program; PCP Nurse Practitioner Family
DX: Z48.02 Encounter for removal of sutures (principal)

== ENCOUNTER 2023-09-22 20:19 | Emergency (ER) | payer MEDICARE, SELFPAY ==
[2023-09-22 20:24] VITALS: BP 205/82; PULSE 93; RESP 18; TEMP 36.9; O2SAT 99
[2023-09-22 20:28] VITALS: BP 166/85
[2023-09-22] MEDS: Clindamycin 150 MG CAP 300 MG PO (20:41)
[2023-09-22] MEDS: Erythromycin Ophth Oint 3.5 GM TUBE OS (20:41)
--- NOTE | 2023-09-22 21:41 | ED.GENADUL_ITS ---
Discharge Plan Disposition Patient Disposition: Home Condition: Stable Discharge Details Clinical Impression: Conjunctivitis Primary Care Provider: Elham Major ED Provider: Bijan Martinez Home Meds and New Rx's Prescriptions: New clindamycin HCl 300 mg capsule 300 mg PO TID 5 Days Qty: 15 0RF No Action pravastatin 20 mg tablet 20 mg PO DAILY levothyroxine 125 mcg capsule 125 mcg PO DAILY alendronate 70 mg tablet 70 mg PO QWEEK metoprolol succinate 25 mg tablet extended release 24 hr 25 mg PO DAILY Patient Comments: TAKE ONE TABLET BY MOUTH EVERY DAY latanoprost 0.005 % drops ophthalmic (eye) DAILY zolpidem 10 mg tablet 10 mg PO DAILY Patient Comments: TAKE ONE TABLET BY MOUTH EVERY EVENING NEEDED Discharge Instructions Instructions: Conjunctivitis (ED) Additional Instructions: Take antibiotics as prescribed. Keep eye clean from the discharge with a cool compress or saline flush. Use the erythromycin ointment 3 times daily. Take the oral antibiotic 3 times daily. Please contact [facility] tomorrow to schedule follow-up. Return if you have any changes in your vision, pain or worsening symptoms Referrals: [facility] [Outside] Discharge Data Discharge Date/Time-TO BE ENTERED AT DEPARTURE: 09/22/23 20:46 HPI General Date/Time Provider Initiated Documentation: 09/22/23 20:30 . Limitations to Documentation: no limitations . Information obtained by: patient . HPI Narrative: 72-year-old female with past medical history of arthritis presents for evaluation of left eye drainage. The patient reports that symptoms started today. She reports excessive watering and tearing from the eye associated with itching. She denies any pain in the eye. She denies any change in vision. She does wear glasses but does not wear contact lenses. She denies any trauma or foreign body sensation. Related Data Home Medications Medication Instructions Recorded Confirmed alendronate 70 mg tablet 70 mg PO QWEEK 07/27/21 09/22/23 levothyroxine 125 mcg capsule 125 mcg PO DAILY 07/27/21 09/22/23 pravastatin 20 mg tablet 20 mg PO DAILY 07/27/21 09/22/23 metoprolol succinate 25 mg 25 mg PO DAILY 09/05/23 09/22/23 tablet,extended release 24 hr clindamycin HCl 300 mg capsule 300 mg PO TID 5 days #15 caps 09/22/23 latanoprost 0.005 % eye drops drp ophthalmic (eye) DAILY 09/22/23 zolpidem 10 mg tablet 10 mg PO DAILY 09/22/23 09/22/23 Previous Rx's Medication Instructions Recorded clindamycin HCl 300 mg capsule 300 mg PO TID 5 days #15 caps 09/22/23 Allergies Allergy/AdvReac Type Severity Reaction Status Date / Time aspirin Allergy Severe ANAPHYLAXIS Verified 09/22/23 20:30 Penicillins AdvReac Mild RASH Verified 09/22/23 20:30 General Stated Complaint: EyeProblem CONSUELO: 4 Exam Narrative Exam Narrative: Review of Systems: All systems reviewed & are unremarkable except as noted in HPI and below Well-developed, no acute distress NCAT PERRL, extraocular movements intact without any pain Visual acuity is normal There is no periorbital edema or tenderness There is some mild periorbital redness around the left eye Left conjunctival is not significantly injected but there is significant discharge noted RRR + Hypertensive Unlabored respiratory effort Nondistended abdomen Extremities w/o deformity, no cyanosis, no edema No rashes or lesions. no focal neurologic deficits Appropriate mood and affect Course Vital Signs Vital signs: Vital Signs Temperature 36.9 C 09/22/23 20: Pulse 93 H 09/22/23 20:24 Respiratory Rate 18 09/22/23 20:24 Blood Pressure 205/82 H 09/22/23 20:24 Pulse Oximetry 99 09/22/23 20:24 Temperature 36.9 C 09/22/23 20:24 Temperature Source Skin 09/22/23 20:24 Pulse 93 H 09/22/23 20:24 Respiratory Rate 18 09/22/23 20:24 Respiratory Effort Normal 09/22/23 20:26 Blood Pressure 166/85 H 09/22/23 20:28 Blood Pressure Position Sitting 09/22/23 20:24 Pulse Oximetry 99 09/22/23 20:24 Oxygen Delivery Method Room Air 09/22/23 20:24 Oxygen Flow Rate 0 09/22/23 20:24 Medical Decision Making Emergent evaluation eye drainage. Initial differential includes bacterial conjunctivitis. Would also consider viral or allergic conjunctivitis. The patient has some redness around her eye, but she states that this is because of the excessive tearing and her history of eczema. She denies any tenderness around the eye making periorbital or preseptal cellulitis less likely. There are no signs of orbital cellulitis. No signs of trauma or foreign body. Her acuity is normal. I doubt any more significant eye infection like traumatic iritis or uveitis. Given the lack of pain episcleritis seems less likely. The patient will be started on topical erythromycin ointment. Will Also Give oral antibiotics out of abundance of caution given her periorbital redness. The plan will be to follow-up with [facility] tomorrow for reevaluation. Medical Records Medical records reviewed: Yes I reviewed the patient's medical records. Quality:[facility] Health Related Social Needs: No Data to Display PFSH All Active Problems Conjunctivitis (Acute) Removal of james (Acute) Laceration of scalp (Acute) Hx of falling (Acute) Immunization, tetanus-diphtheria (Acute) Osteoarthritis of carpometacarpal (CMC) joint of left thumb (Acute) Injected: 07/27/2021 Cellulitis (Acute) Fracture of spinous process of cervical vertebra (Acute) Fracture of spinous process of thoracic vertebra (Acute) Cervical radiculopathy (Acute) Arthritis of carpometacarpal (CMC) joint of right thumb (Chronic) Injected: 12/29/2017 Social History Smoking/Tobacco Use Status: Former Tobacco Use Smoking risk assessment performed?: Yes Alcohol Intake: current Alcohol Intake frequency: a few times a week Drug use: Never Substance use type: does not use Housing: house Do you feel safe at home: Yes Do you feel safe in your relationship?: Yes
== END 2023-09-22 20:46 | disposition home or self-care (01) ==
PROVIDERS: Emergency Provider Emergency Medicine; PCP Nurse Practitioner Family
DX: H10.32 Unspecified acute conjunctivitis, left eye (principal); Z87.891 Personal history of nicotine dependence
CPT/HCPCS: 99283

== ENCOUNTER 2024-01-29 00:59 | Outpatient (CLI) | payer MEDICARE, SELFPAY ==
--- NOTE | 2024-01-29 11:22 | DI.MAMMO_ITS ---
Exam(s) MG MAMMO SCREENING 60 MIN DUR EXAM: MG MAMMO SCREENING 60 MIN DUR CLINICAL HISTORY: SCREENING MAMMO Z12.31 PERS HX BREAST CANCER Z85.3 TECHNIQUE: Bilateral full field digital CC and MLO mammographic images were obtained with 3D tomosyn thesis and utilizing computer aided detection (CAD). COMPARISON: Available for comparison. FINDINGS: Masses/Architectural Distortion: The patient is status post right lumpectomy. No suspicious masses a re seen. No new areas of architectural distortion are present. Microcalcifications: No suspicious pleomorphic-type are seen. Skin Thickening/Nipple Retraction: None. IMPRESSION: 1. No significant interval change with no specific features of malignancy noted. 2. Unless there is more urgent need, screening mammography is recommended, as per [employer] guidelines. 3. Findings were discussed with the patient on the date of the examination. BI-RADS Category 2 - Benign Findings Breast Density - Category C - Heterogeneously dense Breast density category C or D implies that the patient has dense breast tissue. Dense breast tissue is very common and is not abnormal but dense breast tissue can make it harder to find cancer on a ma mmogram. Also, dense breast tissue may increase their breast cancer risk. This information about the result of the mammogram report was provided to the patient to raise their awareness. Use this report when you speak with the patient about their risks for breast cancer, which includes their family hist ory. At that time, you may recommend for more screening tests (Ultrasound or MRI) as they might be us eful based on their risk. A negative radiographic report should not delay biopsy if a dominant or clinically suspicious mass is present. Up to ten percent of cancers are not identified on mammography. A negative report may reinforce clinical impression. Adenosis and dense breasts may obscure an underlying neoplasm. False positive reports average 6 to 10%. Patient will receive a letter notifying them of these results.
== END 2024-01-29 01:19 ==
LOC: DI 00:59
PROVIDERS: PCP Nurse Practitioner Family; Visit Provider Nurse Practitioner Family
DX: Z12.31 Encounter for screening mammogram for malignant neoplasm of breast (principal); Z85.3 Personal history of malignant neoplasm of breast
CPT/HCPCS: 77063; 77067

== ENCOUNTER 2024-03-18 01:43 | Outpatient (CLI) | payer MEDICARE, SELFPAY ==
--- NOTE | 2024-03-18 | DI.DEXA_ITS ---
Exam(s) XR DEXA BONE DENSITY W/WO FADI EXAM: XR DEXA BONE DENSITY W/WO FADI CLINICAL HISTORY: Senile osteoporosis wo current pathological fx, M81.0 TECHNIQUE: COMPARISON: CR XR DEXA BONE DENSITY W/WO FADI from 10/18/2020 FINDINGS: Lateral Spine Image: Unremarkable. No compression deformities identified. Left hip: Total T-Score: -1.8. This compares to -2.1 on the prior examination. Total Z-Score: 0.0 T- and Z-scores: The overall findings are consistent with osteopenia. Note is made of osteoporosis i n the femoral neck with a T-score of -2.5. Lumbar Spine: Total T-Score: -1.3. Compares to -2.0 on the prior examination. Total Z-Score: 1.0 T- and Z-scores: Findings are consistent with osteopenia. Left forearm: There is osteoporosis with a total T-score of -2.7 and a Z-score of -0.3. IMPRESSION: Osteoporosis in the left femoral neck and the left forearm.
== END 2024-03-18 02:03 ==
LOC: DI 01:44
PROVIDERS: PCP Nurse Practitioner Family; Visit Provider Nurse Practitioner Family
DX: M81.0 Age-related osteoporosis without current pathological fracture (principal)
CPT/HCPCS: 77080

== ENCOUNTER 2024-03-31 09:07 | Outpatient (REF) | payer MEDICARE, SELFPAY ==
[2024-03-31 15:52] LABS: ALT 22 U/L (14-59); AST 23 U/L (15-37); Albumin 4.5 g/dL (3.4-5.0); Alkaline Phosphatase 83 U/L (46-116); Anion Gap 9.6 mmol/L (3-11); BUN 18 mg/dL (7-18); Bilirubin, Total 0.48 mg/dL (0.2-1.0); CO2 27.4 mmol/L (21.0-32.0); CREATININE 1.2 mg/dL (0.55-1.02); Calcium 9.7 mg/dL (8.5-10.1); Calculated LDL 116 mg/dL (<100); Chloride 103 mmol/L (98-107); Cholesterol 235 mg/dL (<200); Glucose 95 mg/dL (74-106); HDL Cholesterol 78 mg/dL (40-60); Potassium 4.6 mmol/L (3.5-5.1); Sodium 140 mmol/L (136-145); Total Protein 8.2 g/dL (6.4-8.2); Triglyceride 208 mg/dL (<150); Vitamin D 25 Total 16.9 ng/mL (30-100)
[2024-03-31 16:12] LABS: FREE T4 1.24 ng/dL (0.76-1.46); PHOSPHORUS 4.6 mg/dL (2.6-4.7)
[2024-03-31 21:55] LABS: T3,Free 3.6 pg/mL (2.8-5.3)
== END 2024-03-31 09:08 | disposition home or self-care (01) ==
LOC: NCHCN 09:07
PROVIDERS: PCP Nurse Practitioner Family; Visit Provider Nurse Practitioner Family
DX: I10 Essential (primary) hypertension (principal); M85.80 Other specified disorders of bone density and structure, unspecified site
CPT/HCPCS: 80053; 80061; 82306; 83735; 84100; 84439; 84443; 84481

== ENCOUNTER 2024-09-28 14:14 | Outpatient (REF) | payer MEDICARE, SELFPAY ==
[2024-09-28 16:26] LABS: Anion Gap 11.9 mmol/L (3-11); BUN 20 mg/dL (7-18); CO2 26.1 mmol/L (21.0-32.0); CREATININE 1.2 mg/dL (0.55-1.02); Calcium 9.5 mg/dL (8.5-10.1); Chloride 102 mmol/L (98-107); Glucose 111 mg/dL (74-106); Potassium 5.4 mmol/L (3.5-5.1); Sodium 140 mmol/L (136-145); Vitamin D 25 Total 67 ng/mL (30-100)
== END 2024-09-28 14:15 | disposition home or self-care (01) ==
LOC: NCHCN 14:14
PROVIDERS: PCP Nurse Practitioner Family; Visit Provider Nurse Practitioner Family
DX: M81.0 Age-related osteoporosis without current pathological fracture (principal); I10 Essential (primary) hypertension
CPT/HCPCS: 80048; 82306

== ENCOUNTER 2024-11-18 09:09 | Outpatient (CLI) | payer MEDICARE, SELFPAY ==
--- NOTE | 2024-11-18 08:30 | DI.RAD_ITS ---
Exam(s) XR HAND LT COMPLETE EXAM: XR HAND LT COMPLETE CLINICAL HISTORY: LEFT HAND PAIN. TECHNIQUE: 2D digital imaging was performed of the left hand. Three views were obtained. AP, lateral and oblique views were obtained. COMPARISON: CR,XR XR HAND LT COMPLETE from 01/30/2021 FINDINGS: BONES: No acute fracture is present. No bony destructive lesion is seen. JOINTS: There is marked narrowing of the lateral radiocarpal joint. Marked degenerative changes are seen at the 1st CMC joint characterized by joint space narrowing and osteophytes. SOFT TISSUE: Normal. IMPRESSION: Marked degenerative changes seen at the 1st CMC joint. DATA REPOSITORY: RADIATION DOSE DELIVERED:
== END 2024-11-18 09:10 | disposition home or self-care (01) ==
LOC: DIORS 09:12
PROVIDERS: PCP Nurse Practitioner Family; Referring Provider Nurse Practitioner Family; Visit Provider Student in an Organized Health Care Education/Training Program
DX: M18.12 Unilateral primary osteoarthritis of first carpometacarpal joint, left hand (principal); S60.222A Contusion of left hand, initial encounter; W10.8XXA Fall (on) (from) other stairs and steps, initial encounter
CPT/HCPCS: 99213; 73130

== ENCOUNTER 2025-01-13 11:30 | Outpatient (CLI) | payer MEDICARE, SELFPAY ==
--- NOTE | 2025-01-13 09:55 | DI.RAD_ITS ---
Exam(s) XR KNEE LT 3V AP,LAT,LILLY EXAM: XR KNEE LT 3V AP,LAT,LILLY CLINICAL HISTORY: bilateral knee pain. TECHNIQUE: 2D digital imaging was performed. Three views. COMPARISON: No exams were available for comparison FINDINGS: BONES: No acute fracture is present. No bony destructive lesion is seen. JOINTS: There is severe narrowing of the medial femoral tibial joint space, with a [id number] appearance. There is prominent periarticular spurring. This causes varus angulation at the knee. There is also some narrowing of the lateral femoral tibial joint space. There is periarticular spurring. Chondrocalcinosis is present. The patellofemoral joint space is maintained showed mild periarticular spurring. No joint effusion is seen. SOFT TISSUE: Normal. IMPRESSION: Severe degenerative changes medial femoral tibial joint. Moderate degenerative changes of the lateral femoral tibial joint. DATA REPOSITORY: RADIATION DOSE DELIVERED:
--- NOTE | 2025-01-13 09:55 | DI.RAD_ITS ---
Exam(s) XR STANDING ALIGNMENT EXAM: XR STANDING ALIGNMENT CLINICAL HISTORY: bilateral knee pain. TECHNIQUE: 2D digital imaging was performed. Standing AP views were performed from the pelvis through the ankles. COMPARISON: No exams were available for comparison FINDINGS: BONES: No acute fracture is present. There are old fractures of the distal left tibia and fibula. There are old fractures of the right superior and inferior pubic rami. There is an overall leg length discrepancy at the level of the femoral heads nearly 1 cm. No bony destructive lesion is seen. Leg length discrepancy: No significant overall leg length discrepancy. JOINTS: Knees: Severe degenerative changes are noted in both knees, greater in the medial femoral tibial joint spaces, greater involving the left knee. The ankle joints show mild bilateral joint space narrowing. The hip joints show mild joint space narrowing and mild periarticular spurring. SOFT TISSUE: Normal. IMPRESSION: Severe degenerative changes of both knees, right greater than left.. Approximate overall 10 millimeter leg length discrepancy. DATA REPOSITORY: RADIATION DOSE DELIVERED:
--- NOTE | 2025-01-13 09:55 | DI.RAD_ITS ---
Exam(s) XR KNEE RT 3V AP,LAT,LILLY EXAM: XR KNEE RT 3V AP,LAT,LILLY CLINICAL HISTORY: bilateral knee pain. TECHNIQUE: 2D digital imaging was performed. Three views. COMPARISON: CR XR STANDING ALIGNMENT from 01/13/2025 FINDINGS: BONES: No acute fracture is present. No bony destructive lesion is seen. There is some flattening of the medial femoral condyle. JOINTS: There is severe narrowing of the medial femoral tibial joint space, with a [id number] appearance. There is varus angulation at the knee. Prominent periarticular spurring. There is mild narrowing of the lateral femoral tibial joint space which also shows periarticular spurring. Patellofemoral joint space is maintained and shows minimal periarticular spurring. No joint effusion is seen. SOFT TISSUE: Normal. IMPRESSION: Severe degenerative changes of the medial femoral tibial joint. DATA REPOSITORY: RADIATION DOSE DELIVERED:
== END 2025-01-13 11:31 | disposition home or self-care (01) ==
LOC: DIORS 11:30
PROVIDERS: PCP Nurse Practitioner Family; Referring Provider Nurse Practitioner Family; Visit Provider Physician Assistant
DX: M17.0 Bilateral primary osteoarthritis of knee (principal); M25.561 Pain in right knee; M25.562 Pain in left knee; S60.222D Contusion of left hand, subsequent encounter; S60.022D Contusion of left index finger without damage to nail, subsequent encounter; X58.XXXD Exposure to other specified factors, subsequent encounter
CPT/HCPCS: 20610; 73562; J1010; 77073

== ENCOUNTER → 2025-03-02 02:08 | Outpatient (CLI) | payer MEDICARE, SELFPAY ==
--- NOTE | 2025-03-02 | DI.MAMMO_ITS ---
Exam(s) MG MAMMO SCREENING 60 MIN DUR EXAM: MG MAMMO SCREENING 60 MIN DUR CLINICAL HISTORY: Z85.3 Personal history of malignant neoplasm of breast. TECHNIQUE: Bilateral full field digital CC and MLO mammographic images were obtained with 3D tomosynthesis and utilizing computer aided detection (CAD). COMPARISON: Prior mammograms were reviewed. There has been prior right breast lumpectomy and radiation. FINDINGS: No new left breast findings. Right breast lumpectomy site and remainder of right breast also unchanged. There are no new spiculated masses nor new malignant appearing microcalcification groups. IMPRESSION: No radiographic evidence of malignancy. Continued stable appearance of right breast lumpectomy site. BI-RADS Category 2 - Benign Findings Breast Density - Category C - The breast are heterogeneously dense, which may obscure small masses. Breast density Category C or D implies that the patient has dense breast tissue. Dense breast tissue can make it harder to find cancer on a mammogram. Dense breast tissue is also associated with an increased risk of breast cancer. This information about the result of the mammogram report was provided to the patient to raise their awareness. Use this report when you speak with the patient about their risks for breast cancer, which includes their family history. At that time, you may recommend additional screening tests (Ultrasound or MRI) as these tests may add significant information. A negative radiographic report should not delay biopsy if a dominant or clinically suspicious mass is present. Up to ten percent of cancers are not identified on mammography. A negative report may reinforce clinical impression. Adenosis and dense breasts may obscure an underlying neoplasm. False positive reports average 6 to 10%. Patient will receive a letter notifying them of these results.
== END ==
LOC: DI 02:08
PROVIDERS: PCP Nurse Practitioner Family; Visit Provider Nurse Practitioner Family
DX: Z85.3 Personal history of malignant neoplasm of breast (principal); Z12.31 Encounter for screening mammogram for malignant neoplasm of breast
CPT/HCPCS: 77063; 77067

== ENCOUNTER → 2025-03-30 00:04 | Outpatient (CLI) | payer MEDICARE, SELFPAY ==
--- NOTE | 2025-03-30 | DI.MRI_ITS ---
Exam(s) MR LUMBAR SPINE WO EXAM: MR LUMBAR SPINE WO CLINICAL HISTORY: LOW BACK PAIN M54.32 LT SIDE SCIATICA. TECHNIQUE: Multiplanar multisequence MRI of the Lumbar spine was performed. COMPARISON: CR XR DEXA BONE DENSITY W/WO FADI from 03/18/2024 FINDINGS: Bones: The last intervertebral disc space is designated the L5/S1 level for the numbering purpose of this examination. The vertebral body heights are well maintained. Alignment: Unremarkable. The marrow signal characteristics are unremarkable. Cord: The conus tip ends at the T12 level. It is of normal size and signal intensity. T12-L1: Normal disc height. No focal disc herniation is present. No central spinal canal stenosis.No neural foraminal stenosis. L1-2:Normal disc height. No focal disc herniation is present. No central spinal canal stenosis.No neural foraminal stenosis. L2-3:Mild loss of disc height and mild disc bulging. Minimal endplate osteophytes. No focal disc herniation is present. No central spinal canal stenosis.No neural foraminal stenosis. L3-4: Normal disc height. Broad-based disc bulging.No focal disc herniation is present. Ligamentous hypertrophy. No central spinal canal stenosis.Mild right neural foraminal stenosis. L4-5: Moderate loss of disc height posteriorly. Small endplate osteophytes. Broad-based disc bulging. Ligamentous hypertrophy and facet degenerative changes. Facet fluid is also noted within the facet joints. No focal disc herniation is present. There is a left facet joint cyst projecting into the posterior aspect of the central canal causing moderate central spinal canal stenosis.Mild right neural foraminal stenosis. L5-S1: Mild loss of disc height posteriorly. Broad-based disc bulging.No focal disc herniation is present. No central spinal canal stenosis. Facet degenerative changes cause mild bilateral neural foraminal stenosis. The visualized SI joints and sacrum are unremarkable. Soft tissues: The paraspinal soft tissues are unremarkable. The aorta is normal in diameter. IMPRESSION: Combination of disc bulging, ligamentous hypertrophy and facet joint cyst combine to current cause moderate central canal stenosis at L4-5. DATA REPOSITORY:
== END ==
LOC: DI 00:05
PROVIDERS: PCP Nurse Practitioner Family; Visit Provider Nurse Practitioner Family
DX: M54.50 Low back pain, unspecified (principal); M54.32 Sciatica, left side
CPT/HCPCS: 72148